=== PATIENT | female | born 1955 | race Caucasian/White ===

== ENCOUNTER 2024-12-11 15:22 | Inpatient (IN) | payer MEDICARE, BC, SELFPAY ==
[2024-12-11] VITALS (10 sets, daily range): BP systolic 139–169; BP diastolic 91–108; PULSE 70–876; RESP 16–98; TEMP 36.8–37.1; O2SAT 97–100; BMI 19.5
--- NOTE | 2024-12-11 15:54 | XR_ITS ---
Examination: CTA carotids with intravenous contrast CTA brain, head with intravenous contrast. 2-D sagittal, coronal reconstructions. 3-D reconstructions. Exam date and time: December 11, 2024 1610 hours INDICATIONS: Stroke alert, onset focal neurologic deficit today CTDI: vol (mGy) 10.2 DLP: (mGycm) 385 Technique: Multiple CTA axial brain, head carotid images post intravenous contrast injection 75 cc, Isovue-370. 2-D sagittal, coronal reconstructions. 3-D reconstructions, 3-D post processing including vascular maximum intensity projection images. Low dose protocols were performed. One or more of the following dose reduction techniques were used; automated exposure control, adjustment of the mA and/or KV according to patient size, use of iterative reconstruction technique. Findings: Moderate calcification the right carotid bifurcation, 30-50% stenosis right carotid bifurcation and origin right internal carotid artery No significant stenosis left common carotid artery carotid bifurcation or internal carotid artery Very small right vertebral artery, grossly intact No cerebral large vessel arterial occlusions or thrombus IMPRESSION: 30-50% stenosis right carotid bifurcation origin right internal carotid artery No cerebral large vessel arterial occlusions
--- NOTE | 2024-12-11 15:54 | XR_ITS ---
Examination: CT brain head without contrast. 2-D sagittal coronal reconstructions Date and time of exam:December 11, 2024 1558 hours INDICATIONS: Stroke alert, onset focal neurologic deficit confusion altered mental status today CTDI: vol (mGy):44.3 DLP: (mGycm):913 Technique: Multiple CT axial sections of the brain have been obtained, 5 mm slice thickness. Contrast has not been administered. 2-D sagittal, coronal reconstructions have been obtained Low dose protocols were performed. One or more of the following dose reduction techniques were used; automated exposure control, adjustment of the mA and/or KV according to patient size, use of iterative reconstruction technique. Findings: No significant ventricular enlargement. Intra-axial or extra-axial hemorrhage density is not seen. No mass effect or midline shift Basal cisterns are not remarkable. Fourth ventricle is midline. Cranial vault intact. Impression: Negative for acute hemorrhage, mass effect or midline shift
--- NOTE | 2024-12-11 15:54 | EKG_ITS ---
[facility] Test Date: 2024-12-11 Pat Name: IGLESIA PRINCE Department: Room: - Gender: Female Radiologist Physician: : 1955 Requested By: Joseph Espitia Order Number: [id number] Reading MD: Joseph Espitia Measurements Intervals [place] Rate: 100 P: 76 [place]: 108 QRS: 60 QRSD: 86 T: 58 QT: 393 QTc: 509 Interpretive Statements SINUS TACHYCARDIA WITH SHORT [place] INTERVAL WITH OCCASIONAL SUPRAVENTRICULAR PREMATURE COMPLEXES ST DEVIATION AND MODERATE T-WAVE ABNORMALITY, CONSIDER INFERIOR ISCHEMIA [-0.1+ mV T WAVE IN II/aVF] No previous ECG available for comparison /store/S0/[id number].pdf
--- NOTE | 2024-12-11 16:26 | PD.EDAMS ---
Altered Mental Status RME/HPI General Chief Complaint: Altered Mental Status Stated Complaint: ANXIETY Time Seen by Provider: 12/11/24 15:40 Arrival date/time: 12/11/24 15:22 RME / HPI RME / HPI narrative: 69 year old female with history of hypertension presents to the ED BIBA from home for evaluation of altered mental status today. Per medics report, had called 911 stating the patient appeared confused and asking repetitive questions. State on scene patient was awake, alert, answering all questions appropriately, GCS of 15, and G-FAST was negative. Prehospital BS 110. While in the ED patient reports feeling confused otherwise no other complaints or symptoms reported. Denies fevers, chills, chest pain, cough, shortness of breath, abdominal pain, n/v/d, or urinary symptoms. Related Data Allergies Allergy/AdvReac Type Severity Reaction Status Date / Time Sulfa (Sulfonamide Allergy Verified 12/11/24 17:51 Antibiotics) Review of Systems Review of Systems Narrative Review of Systems: GEN: No fever, no chills, no weight loss EYES: No discharge, no visual changes, no pain HEENT: No ear pain, no congestion, no sore throat PULM: No shortness of breath, no cough, no congestion CV: No chest pain, no dyspnea on exertion, no palpitations GI: No nausea, no vomiting, no diarrhea, no pain, no constipation : No frequency, no urgency and no dysuria MUSC/SKEL No joint pain, no back pain SKIN: No rash PSYCH: No hallucinations, no depression HEME/LYMPH: No easy bleeding or bruising tendencies NEURO: +feels confused. No weakness, no headache Past Medical History Social History SMOKING STATUS: Heavy (> 1 pack/day) ED Exam Narrative Physical exam: GENERAL APPEARANCE: Well hydrated, well nourished, in no acute distress. Appears confused. VITALS: All vitals were reviewed and the pulse ox is 97% on room air which is normal according to my interpretation. HEENT: Normocephalic, atramatic, EOMI, EACs are patent. There is no bulge or retraction. Throat without erythema or exudate. Moist oromucosa. No jaundice NECK: Supple, no JVD or bruits. CARDIOVASCULAR: Heart regular without S3-S4 or murmur. No rubs or gallops. LUNGS/CHEST: Clear to auscultation bilaterally. No rales, rhonchi, or wheezing. Normal inspection. ABDOMEN: Soft, nontender, with normal bowel sounds. No pulsatile masses. No rebound, rigidity, or guarding. No incarcerated hernia. Normal inspection and palpation. EXTREMITIES: Normal inspection and palpation. No edema, clubbing, or cyanosis. Intact CSM SKIN: Warm and dry without rashes. Normal inspection. MUSCULOSKELETAL: Normal inspection. No gross deformity, full ROM all extremities NEURO: Alert and oriented x3 although mildly confused. Cranial nerves II through XII grossly intact. There are no other motor or sensory deficits noted. PSYCHIATRIC: Normal mood and affect. No psychosis. Course Quality Measures Suspected type of Stroke: Non Acute Last know well: unknown Tenecteplase given: Reason(s) TPA not given: Outside the time window not given stroke Orders Category Date Time Status Bedside Blood Glucose NOW Care 12/11/24 15:54 Active Research Center Director NOW Care 12/11/24 15:54 Active Continuous Pulse Oximetry NOW Care 12/11/24 15:54 Active EKG (ED ONLY) *Do not use* NOW Care 12/11/24 15:54 Completed In and Out Catheter NEEDED Care 12/11/24 15:54 Active Insert IV NOW Care 12/11/24 15:54 Active NIH Stroke Scale now Care 12/11/24 15:54 Active NPO NOW Care 12/11/24 15:54 Active Neuro Check Q1HR Care 12/11/24 15:54 Active Nurse Swallow Screen x1 Care 12/11/24 15:54 Active Consult to Neurology / Tele-Neurology Routine Cons 12/11/24 15:[address] angio stroke protocol Stat Exams 12/11/24 15:[address] stroke protocol Stat Exams 12/11/24 15:54 Completed EKG (ED Only) Stat Exams 12/11/24 15:54 Draft Alcohol, Blood Medical Stat Lab 12/11/24 16:13 Completed CBC Stat Lab 12/11/24 16:13 Completed Comprehensive Metabolic Panel Stat Lab 12/11/24 16:13 Completed Drug Screen,Urine Stat Lab 12/11/24 16:36 Completed Magnesium Stat Lab 12/11/24 16:13 Completed Partial Thromboplastin Time Stat Lab 12/11/24 16:13 Completed Prothrombin Time with INR Stat Lab 12/11/24 16:13 Completed Troponin I Stat Lab 12/11/24 16:13 Completed Urinalysis Stat Lab 12/11/24 16:36 Completed Urine Culture Stat Lab 12/11/24 16:36 Received Ondansetron Inj [Zofran Inj] Med 12/11/24 15:53 Active 4 mg IV Q4HR PRN POTASSIUM CHL 10 mEq IVPB [Kcl Ivpb] Med 12/11/24 17:38 Active 10 meq in 100 ml IV X1 POTASSIUM CHL 10 mEq IVPB [Kcl Ivpb] Med 12/11/24 17:40 Active 10 meq in 100 ml IV X1 POTASSIUM CHL 10 mEq IVPB [Kcl Ivpb] Med 12/11/24 17:41 Active 10 meq in 100 ml IV X1 POTASSIUM CHL 10 mEq IVPB [Kcl Ivpb] Med 12/11/24 17:41 Active 10 meq in 100 ml IV X1 Potassium Chloride [K-Dur] Med 12/11/24 17:34 Discontinued 40 meq PO X1 ONE Sodium Chloride 0.9% 1000 ml [Ns] 1,000 ml Med 12/11/24 16:00 Active IV Q10H Oxygen Delivery NOW RT 12/11/24 15:54 Active Vital Signs Vital signs: Vital Signs Temperature 98.3 F 12/11/24 16:33 Pulse Rate 105 H 12/11/24 16:33 Respiratory Rate 19 12/11/24 16:33 Blood Pressure 161/103 H 12/11/24 16:33 Pulse Oximetry (%) 99 12/11/24 16:33 Oxygen Delivery Method Room Air 12/11/24 16:33 Altered Mental Status MDM Narrative MDM Narrative:: I, Anat Mercer, am scribing for and in the presence of Dr. Espitia. CBC is negative. Sodium is 128. Chlorides of 88. Potassium of 2.0. Which is very low. Alcohol negative. Toxicology negative. Magnesium negative. Troponin negative. PT is negative. UA is negative. CT head and CT angiogram of head and neck were done and results are posted below. Twelve-lead EKG at 1648 interpreted by me: Sinus rhythm. Heart rate 100. Normal axis. No ST elevation. Minimal ST segment depression in leads V4, V5 and V6. No STEMI. No PVC. Regular rate and rhythm. In the emergency department we are giving the patient's potassium by order is for 40 hiram potassium by mouth now followed by 10 mill equivalent of potassium IV per hour times 4K rider bags. 4:33 PM I spoke to discussed with Dr. Bernard, teleneurologist on the phone. She has examined the patient. She said that unlikely to be a stroke. She said most likely metabolic dysfunction. She does not recommend any aspirin or Plavix. But she does recommend a follow-up MRI of the brain. 6 PM, I spoke to and discussed with Dr. cuellar, hospitalist on-call. He agreed to assess the patient for admission. Critical care time is approximately 35 minutes excluding any procedure. The high probability of sudden, clinically significant deterioration in the patient?s condition required the highest level of my preparedness to intervene urgently. The services I provided to this patient were to treat and/or prevent clinically significant deterioration. Services included the following: chart data review, reviewing nursing notes and/or old charts, documentation time, staffing consultant collaboration regarding findings and treatment options, medication orders and management, direct patient care, vital sign assessments and ordering, interpreting and reviewing diagnostic studies and lab tests. Aggregate critical care time includes only time during which I was engaged in work directly related to the patient?s care, as described above, whether at bedside or elsewhere in the Emergency Department. It did not include time spent performing other reported procedures or the services of residents, students, nurses or physician assistants. Patient data External records reviewed:: [facility] previous records (Per EMR, there are no previous visits for review ) and EMS form Clinical information provided by:: patient and EMS Social determinants that could affect healthcare access:: none Patient has the following chronic illnesses:: HTN How is presenting disease/condition affected by chronic disease/condition?: exacerbated by Evaluation data The following diagnostics were reviewed and interpreted by me:: lab results, radiology exam(s) and EKG tracing(s) Lab and/or radiology exams considered but not ordered:: None Interpretation Summary: Ordering Physician: Joseph Espitia MD Date of Service: 12/11/24 Procedure(s): CT stroke protocol Accession Number(s): [id number] cc: Edi Mathur MD; Joseph Espitia MD~ Examination: CT brain head without contrast. 2-D sagittal coronal reconstructions Date and time of exam:December 11, 2024 1558 hours INDICATIONS: Stroke alert, onset focal neurologic deficit confusion altered mental status today CTDI: vol (mGy):44.3 DLP: (mGycm):913 Technique: Multiple CT axial sections of the brain have been obtained, 5 mm slice thickness. Contrast has not been administered. 2-D sagittal, coronal reconstructions have been obtained Low dose protocols were performed. One or more of the following dose reduction techniques were used; automated exposure control, adjustment of the mA and/or KV according to patient size, use of iterative reconstruction technique. Findings: No significant ventricular enlargement. Intra-axial or extra-axial hemorrhage density is not seen. No mass effect or midline shift Basal cisterns are not remarkable. Fourth ventricle is midline. Cranial vault intact. Impression: Negative for acute hemorrhage, mass effect or midline shift Dictated By: Edi Mathur MD Signed By: <Electronically signed by Edi Mathur MD in OV> 12/11/24 1608 Ordering Physician: Joseph Espitia MD Date of Service: 12/11/24 Procedure(s): CT angio stroke protocol Accession Number(s): [id number] cc: Edi Mathur MD; Joseph Espitia MD~ Examination: CTA carotids with intravenous contrast CTA brain, head with intravenous contrast. 2-D sagittal, coronal reconstructions. 3-D reconstructions. Exam date and time: December 11, 2024 1610 hours INDICATIONS: Stroke alert, onset focal neurologic deficit today CTDI: vol (mGy) 10.2 DLP: (mGycm) 385 Technique: Multiple CTA axial brain, head carotid images post intravenous contrast injection 75 cc, Isovue-370. 2-D sagittal, coronal reconstructions. 3-D reconstructions, 3-D post processing including vascular maximum intensity projection images. Low dose protocols were performed. One or more of the following dose reduction techniques were used; automated exposure control, adjustment of the mA and/or KV according to patient size, use of iterative reconstruction technique. Findings: Moderate calcification the right carotid bifurcation, 30-50% stenosis right carotid bifurcation and origin right internal carotid artery No significant stenosis left common carotid artery carotid bifurcation or internal carotid artery Very small right vertebral artery, grossly intact No cerebral large vessel arterial occlusions or thrombus IMPRESSION: 30-50% stenosis right carotid bifurcation origin right internal carotid artery No cerebral large vessel arterial occlusions Dictated By: Edi Mathur MD Signed By: <Electronically signed by Edi Mathur MD in OV> 12/11/24 1638 Medications / Prescriptions Medications or Prescriptions considered but not ordered:: None Medication administrations:: Medication Administration History Sodium Chloride (Ns) 1,000 mls @ 100 mls/hr IV Q10H JUANY Stop: 12/12/24 11:59 Last Admin: 12/11/24 17:28 Dose: 100 mls/hr Documented By: Potassium Chloride (Kcl Ivpb) 10 meq in 100 mls @ 100 mls/hr IV X1 ONE Stop: 12/11/24 18:37 Last Admin: 12/11/24 17:52 Dose: 100 mls/hr Documented By: Potassium Chloride (Kcl Ivpb) 10 meq in 100 mls @ 100 mls/hr IV X1 ONE Stop: 12/11/24 18:39 Potassium Chloride (Kcl Ivpb) 10 meq in 100 mls @ 100 mls/hr IV X1 ONE Stop: 12/11/24 18:40 Potassium Chloride (Kcl Ivpb) 10 meq in 100 mls @ 100 mls/hr IV X1 ONE Stop: 12/11/24 18:40 Ondansetron HCl (Ondansetron Inj 2 Mg/Ml Inj 2 Ml) 4 mg IV Q4HR PRN PRN Reason: NAUSEA OR VOMITING Stop: 01/10/25 15:52 Discontinued Medications Potassium Chloride (Potassium Chloride 20 Meq Tabcr) 40 meq PO X1 ONE Stop: 12/11/24 17:35 Last Admin: 12/11/24 17:52 Dose: 40 meq Documented By: See above Consultations Consultation(s) initiated? (list below): Yes Consultation #1 (Physician, Specialty, Details): I spoke with teleneurologist Dr. Nicholson. States patients last known well is unknown and out of the 4.5 window. Time: 16:47 Consultation #2 (Physician, Specialty, Details): I spoke with hospitalist Dr. Cuellar. Discussed patients PMHx, HPI, ED course, exam findings, labs, and radiology results as noted above. Diagnosis Most likely diagnosis given after review of the tests above:: AMS Hypokalemia Hyponatremia Hypochloremia Admission Indicated Admission indicated?: indicated Admission Request Was there a request for admission?: Yes Admission Attestation Admission request attestation: Discussed case with [] from Hospitalist service regarding admission. Discussed patients ED course, exam findings, labs, and radiology results. The Hospitalist [agrees,declines] to accept the patient for admission. Disposition Plan Disposition Plan: Admit Discharge Plan Plan Patient Disposition: Admit Acute Care w/in Hospital Disposition Comment: Stable for admit Problem List Clinical Impression: Altered mental status, Hyponatremia, Hypokalemia, Hypochloremia Patient/Caregiver Discharge Instructions Print Language: Citizen Of [place] Stand Alone Forms: Nikki Award Info., Patient Portal Info Letter
[2024-12-11 16:28] LABS: Basophils % (Auto) 0 % (0-2.5); Eosinophils % (Auto) 0 % (0-10); Hematocrit 37.4 % (36.0-46.0); Hemoglobin 14.1 g/dL (12.0-16.0); Immature Granulocytes % (Auto) 1 % (0-0); Immature Granulocytes Auto 0.06 Thou/mm3 (0.00-0.00); Lymphocytes # (Auto) 1.6 Thou/mm3 (1.0-4.8); Lymphocytes % (Auto) 16 % (10-50); Mean Corpuscular HGB Conc 37.7 g/dl (31.0-37.0); Mean Corpuscular Hemoglobin 32.6 pg (25.0-35.0); Mean Corpuscular Volume 87 fL (80-100); Monocytes # (Auto) 1.2 Thou/mm3 (0.0-0.8); Monocytes % (Auto) 11 % (0-12); Neutrophils # (Auto) 7.7 Thou/mm3 (1.8-7.7); Neutrophils % (Auto) 73 % (37-80); Nucleated Red Blood Cell % 0 /100 WBC (0); Platelet Count 374 Thou/mm3 (140-440); Red Blood Count 4.32 Miln/mm3 (4.00-5.20); White Blood Count 10.6 Thou/mm3 (3.6-11.0)
--- NOTE | 2024-12-11 16:41 | ESCONSULT_ITS ---
Tele Neuro Consultation Consultation Date 12/11/24 Consultation Narrative [facility] Tele[facility]urology Consult Services Patient Name:???Lashae Gonzalez Date of :???1955 Identification Number:??? Date of Service:???12/11/2024 15:56:36 Diagnosis:?G93.49 - Encephalopathy Multifactorial Impression: ?1. The patient appears to be more confused and is less ambulatory than she normally is. It sounds like she has rather significant cognitive complications as a result of having a prior Covid infection as she was previously a physician computer lab assistant. Her family manages her finances, etc. her medications, they even help her move from place to place with assistance to go sit in different places in the house. It sounds like she can ambulate independently but does have balance issues. She is not aphasic. On exam she appears confused. She did not have any focal weakness numbness or tingling. ? ?Recommend toxic metabolic workup. It is possible component of Xanax withdrawal is contributing to her symptoms, however, would wait for basic toxic metabolic workup such as electrolytes to result. Can always give her half dose of her benzodiazepines. Depending on how she takes it at home in order to avoid a component of withdrawal. Recommend routine MRI brain. Recommend B12, TSH, ammonia. Recommend drug screen. ?consider routine EEG if no explanation for her AMS found on basic workup. ? Telemetry Floor ? Neuro Checks ? Bedside Swallow Eval ? DVT Prophylaxis ? IV Fluids, Normal Saline ? Euglycemia and Avoid Hyperthermia (PRN Acetaminophen) Sign Out: ? Discussed with Emergency Department Provider Advanced Imaging: CTA Head and Neck Completed. LVO:No Patient in not a candidate for ISREAL Metrics: Last Known Well: Unknown Dispatch Time: 12/11/2024 15:56:36 Arrival Time: 12/11/2024 15:22:00 Initial Response Time: 12/11/2024 16:00:10Symptoms: AMS. Initial patient interaction: 12/11/2024 16:02:59 NIHSS Assessment Completed: 12/11/2024 16:12:00Patient is not a candidate for Thrombolytic. Thrombolytic Medical Decision: 12/11/2024 16:12:00Patient was not deemed candidate for Thrombolytic because of following reasons: LKW outside 4.5 hr window. . I personally Reviewed the CT Head and it Showed no acute changes Primary Provider Notified of Diagnostic Impression and Management Plan on: 12/11/2024 16:47:26 History of Present Illness:Patient is a 69 year old Female. Patient was brought by EMS for symptoms of AMS. The patient is a 69-year-old woman with a history of hypertension and has long covid She's had what sounds like some pretty significant cognitive issues ever since being infected. Her family provides a history that she has improved quite a bit, but that they still sets her pills out in a pill dispenser and she takes them. She does not manage her own finances, she requires assistance to walk from place to place. He apparently brought her a walker and a cane, but she really doesn't use them. It sounds like she has some behavioral issues as well. For the past 2 days, today and yesterday they noticed that she did not take her antihypertensives and she did not take her Xanax that she does take on a daily basis. Today she really hadn't gotten out of bed all day and is more confused than usual. She does not take any blood thinners. Past Medical History: ?Hypertension Other PMH:? cognitive impairment post covid Medications: No Anticoagulant use? No Antiplatelet use Reviewed EMR for current medications Allergies:? Reviewed Social History: Drug Use: No Family History: There is no family history of premature cerebrovascular disease pertinent to this consultation ROS : 14 Points Review of Systems was performed and was negative except mentioned in HPI. Past Surgical History: There Is No Surgical History Contributory To Today?s Visit Examination: BP(130/90),?Pulse(75), 1A: Level of Consciousness - Alert; keenly responsive?+ 0 1B: Ask Month and Age - Both Questions Right?+ 0 1C: Blink Eyes & Squeeze Hands - Performs Both Tasks?+ 0 2: Test Horizontal Extraocular Movements - Normal?+ 0 3: Test Visual Jaramillo - No Visual Loss?+ 0 4: Test Facial Palsy (Use Grimace if Obtunded) - Normal symmetry?+ 0 5A: Test Left Arm Motor Drift - No Drift for 10 Seconds?+ 0 5B: Test Right Arm Motor Drift - No Drift for 10 Seconds?+ 0 6A: Test Left Leg Motor Drift - No Drift for 5 Seconds?+ 0 6B: Test Right Leg Motor Drift - No Drift for 5 Seconds?+ 0 7: Test Limb Ataxia (FNF/Heel-Stephenson) - No Ataxia?+ 0 8: Test Sensation - Normal; No sensory loss?+ 0 9: Test Language/Aphasia - Normal; No aphasia?+ 0 10: Test Dysarthria - Normal?+ 0 11: Test Extinction/Inattention - No abnormality?+ 0 NIHSS Score:?0 Pre-Morbid Modified Wagram Scale:4 Points = Moderately severe disability; unable to walk and attend to bodily needs without assistance Spoke with :?ED MD This consult was conducted in real time using interactive audio and video technology. Patient was informed of the technology being used for this visit and agreed to proceed. Patient located in hospital and provider located at home/office setting. Patient is being evaluated for possible acute neurologic impairment and high probability of imminent or life-threatening deterioration. I spent total of 45 minutes providing care to this patient, including time for face to face visit via telemedicine, review of medical records, imaging studies and discussion of findings with providers, the patient and/or family. Dr Aisha Nicholson [facility] For Inpatient follow-up with [facility] physician please call [facility] at . As we are not an outpatient service for any post hospital discharge needs please contact the hospital for assistance. If you have any questions for the [facility] physicians or need to reconsult for clinical or diagnostic changes please contact us via [facility] at .
[2024-12-11 16:44] LABS: Partial Thromboplastin Time 23.6 Seconds (22.0-36.0); Prothrombin Time 11.2 Seconds (9.0-12.2)
[2024-12-11 16:59] LABS: Collection Type, Urine Clean Catch
[2024-12-11 17:00] LABS: Alanine Aminotransferase 93 U/L (10-49); Albumin, Serum 3.3 gm/dL (3.4-4.8); Albumin/Globulin Ratio 1.3 (1.2-2.2); Alcohol, Blood Medical < 3.0 mg/dL (0-10.0); Alkaline Phosphatase 152 U/L (46-116); Anion Gap 11 (7-16); Aspartate Amino Transferase 122 U/L (0-34); BUN/Creatinine Ratio 13 Ratio (12-20); Bilirubin,Total 1.1 mg/dL (0.3-1.2); Blood Urea Nitrogen 8 mg/dL (9-23); Calcium 8.9 mg/dL (8.3-10.6); Calcium (Corrected) 9.5 mg/dL (8.5-10.1); Carbon Dioxide 29.4 mMol/L (20.0-31.0); Chloride 88 mMol/L (98-107); Creatinine (Component) 0.6 mg/dL (0.6-1.3); Estimated Creatinine Clearance 71.7 mL/min (>60); Globulin 2.5 gm/dL (2.3-3.5); Glucose 101 mg/dL (74-106); Magnesium 1.8 mg/dL (1.6-2.6); Osmolality,Calculated 255 (275-295); Sodium 128 mMol/L (136-145); Total Protein 5.8 gm/dL (5.7-8.2); Troponin I 0.039 ng/mL (0.0-0.045); eGFR > 60 See Note
[2024-12-11 17:05] LABS: Bilirubin,Urine Negative (Negative); Blood,Urine Negative (Negative); Clarity,Urine Clear (Clear/Hazy); Color,Urine Lt-Yellow (Lt Yel-Yel); Glucose, Urine Negative (Negative); Ketones,Urine 1+ (Negative); Leukocyte Esterase,Urine Positive (Negative); Nitrite,Urine Negative (Negative); Protein,Urine Negative (Neg - Trace); RBC,Urine 1 /hpf (0-3); Specific Gravity,Urine 1.017 (1.001-1.035); Squamous Epithelial Cell,Urine 1 /hpf (0-5); Urobilinogen,Urine Negative mg/dL (0.0-1.0); WBC,Urine 7 /hpf (0-5)
[2024-12-11 17:12] LABS: Amphetamine/Methamp Scrn,U Negative (Negative); Barbiturate Screen,Urine Negative (Negative); Benzodiazepines Screen,Urine Negative (Negative); Benzoylecgonine Screen, Ur Negative (Negative); Fentanyl Screen,Urine Negative (Negative); Opiate Screen,Urine Negative (Negative); THC Screen,Urine Negative (Negative)
[2024-12-11] MEDS: SODIUM CHLORIDE 0.9% 1000 ML 1,000 ML 100 ML IV (17:28)
[2024-12-11] MEDS: POTASSIUM CHL 10 mEq IVPB 10 MEQ/100 ML BAG 100 MEQ IV ×4 (17:52→21:47)
[2024-12-11] MEDS: POTASSIUM CHLORIDE 20 mEq TABCR 40 MEQ PO ×2 (17:52→19:03)
--- NOTE | 2024-12-11 18:58 | PD.HHHP ---
Documentation for date of: 12/11/24 HPI - Hospitalist History of Present Illness History of present illness: Patient is a 69 years old female with past medical history of essential hypertension was brought to the ED by her family due to concern for altered mental status. At bedside, patient is confused and is unable to answer questions appropriately. HPI completed with help of her brother on phone. As per the brother, patient has not been completely herself for last couple of years and has been having slow cognitive decline after COVID infection. But for the last couple of of months her decline has been faster. She is able to complete her ADLs at baseline but needs help with Cooking. The son also mentioned that for last few day she has not been able to eat/drink well. Patient drinks 6-8 beers everyday, which the family has been trying to taper for last couple months, her last drink was 3 days ago. Patient also takes xanax daily, and the son believes she has been dependant on it. Patient has been noncompliant with her medication and doctor visits. Her last visit was 6 month ago, when she was told she has low potassium and prescibed K tablets for 4-5 days, but she never had a follow up vist/labs. The son denied fever, chills, Pain, SOB, cough, Nausea, vomiting or diarrhea. In the ED stroke alert was called initially, Head CT was done, negative for acute hemorrhage, mass effect or midline shioft. CTA head/neck shows 30-50% stenosis right carotid bifurcation origin right internal carotid artery No cerebral large vessel arterial occlusions. Tele neurology was consulted, who recommended brain MRI and workup for toxic metabolic causes of encephalopathy. She was found to be hypertensive 161/103 and tachycardic 105. Saturating well on room air. Lab results revealed Na of 128, K 2.0 and chloride 98. Also noted to have mild elevation in liver enzymes. We will admit the patient for management of acute encephalopathy in setting of severe electrolyte abnormalities and decreased oral intake. Past medical history: Hypertension, Benzo abuse Past surgical history: None Past social history: Smokes cigarette, currently 1 pack/week, used to smoke heavily before; Drinks alcohol regularly 6-8 beers/day, does not use illicit drugs, lives with 2 sons Review of Systems Review of Systems ROS Unobtainable: unobtainable due to mental status Meds Home Medications and Allergies Allergies Allergy/AdvReac Type Severity Reaction Status Date / Time Sulfa (Sulfonamide Allergy Verified 12/11/24 17:51 Antibiotics) Exam Vital Signs Temp Pulse Resp BP Pulse Ox O2 Del Method 98.4 F 104 H 20 145/96 H 100 Room Air 12/11/24 18:30 12/11/24 18:30 12/11/24 18:30 12/11/24 18:30 12/11/24 18:30 12/11/24 18:30 Narrative General: Awake and alert but oriented x2. Lying comfortably on the bed. Unable to answer questions appropriately but able to follow commands HEENT: Normocephalic, atraumatic, mucous membranes dry. Heart: Regular rate and rhythm, no murmur Lungs: Clear to auscultation with no wheezing or crackles. Abdomen: Soft, nondistended, nontender, positive bowel sounds. ?No guarding or rebound tenderness. Neurologic: Alert but only oriented x2, no gross neurological deficit, and patient able to move all 4 extremities. Extremities: No edema. Skin: No rash Psych: Pleasantly confused Results - Hospitalist Labs Diagrams: 12/11/24 16:13 12/11/24 16:13 Labs: Short CBC 12/11/24 Range/Units 16:13 WBC 10.6 (3.6-11.0) Thou/mm3 Hgb 14.1 (12.0-16.0) g/dL Hct 37.4 (36.0-46.0) % Plt Count 374 (140-440) Thou/mm3 [facility] 12/11/24 16:13 Sodium 128 L Potassium 2.0 L* Chloride 88 L Carbon Dioxide 29.4 BUN 8 L Creatinine 0.6 Glucose 101 Calcium 8.9 Cardiac Enzymes 12/11/24 Range/Units 16:13 Troponin I 0.039 (0.0-0.045) ng/mL Liver Function 12/11/24 Range/Units 16:13 Total Bilirubin 1.1 (0.3-1.2) mg/dL AST 122 H (0-34) U/L ALT 93 H (10-49) U/L Alkaline Phosphatase 152 H (46-116) U/L Albumin 3.3 L (3.4-4.8) gm/dL Urine 12/11/24 Range/Units 16:36 Urine Color Lt-Yellow (Lt Yel-Yel) Urine Clarity Clear (Clear/Hazy) Urine pH 7.0 (5.0-7.0) Ur Specific Guin 1.017 (1.001-1.035) Urine Protein Negative (Neg - Trace) Urine Glucose (UA) Negative (Negative) Assessment & Plan -Hospitalist Additional Plan Additional Plan: 69 years old female with Past medical history of hypertension being admitted for evaluation and management of Acute encephalopathy in setting of electrolyte imbalance and decreased oral intake. #Acute encephalopathy #Progressive cognitive decline #CVA rule out #Possible benzodiazepine withdrawl Likely toxic metabolic in setting of progressive cognitive decline Patient has low sodium, potassium and chloride Patient has been having low oral intake recently, also has history of regular alcohol intake Stroke alert was called in the ED Head CT was negative for acute hemorrhage, mass effect or midline shift. CTA head/neck shows 30-50% stenosis right carotid bifurcation origin right internal carotid artery No cerebral large vessel arterial occlusions. Tele neurology was consulted, who recommended brain MRI and workup for toxic metabolic causes of encephalopathy. Ordered brain MRI, ammonia, TSH, B12 Drug screen and alcohol level negative We will continue frequent neurochecks, seizure precautions, obtain swallow screen, physical therapy and speech therapy We will also obtain in house neurology consult #Electrolyte imbalances #Hyponatremia #Hypokalemia #Hypochloremia Likely secondary to decreased oral intake Noted to have NA 128, K 2.0 and Cl 98 Patient received 40 mEq PO and was started on 40 Iv of Kcl in the ED We will add 40 more orally for tonight Started on 40 mEq BID PO from tomorrow morning We will continue with NS at 100cc/hr started in the ED Discussed with nephrology, appreciate recommendations We will obtain urinary electrolytes, renin and aldosterone level along with phosphorus level We will monitor the level frequently and adjust the supplementation #History of alcohol abuse #History of smoking #Alcohol withdrawal The son stated he has been trying to taper her alcohol intake and smoking at home, last drink 3 days back Negative urine toxicology including blood alcohol level Started patient on CIWA protocol Started on thiamine, folate and multivitamin We will monitor symptoms of withdrawal closely #Elevated liver enzymes Likely related to alcohol abuse Has AST/ ALT/ALP/ T Sunny of 122, 93, 152, 1.1 We will obtain liver US #Hypertension Blood pressure of 161/103 on arrival Patient takes Nifedipine at home, dose unclear Started on 30mg TID, will adjust antihypertensive regimen based on response #Sinus Tachycardia Likely related to dehydration, withdrawls We will monitor closely Diet: Regular diet DVT prophylaxis: Heparin SC Code: Full code Padmini Reyes MD Quality Measures Quality Measures stroke Suspected type of Stroke: Non Acute Tenecteplase given: Reason(s) Tenecteplase not given: Outside the time window not given Rehab services: PT evaluation ordered and Speech Language Pathology eval ordered VTE Prophylaxis: pharmaceutical Antithrombotic by day 2:: not indicated (describe) (Altered mentation more likely to be metabolic) Statin ordered: not ordered Anticoagulation ordered for A-fib or flutter (current or hx): not indicated Advance care planning discussed with:: child
[2024-12-11 19:31] LABS: Vitamin B12 1693 pg/mL (211-911)
[2024-12-11 20:21] LABS: Phosphorous 1.5 mg/dL (2.4-5.1); Thyroid Stimulating Hormone 1.97 uIU/mL (0.55-4.78)
[2024-12-11] MEDS: THIAMINE INJ 100 MG/ML VIAL 2 ML IM (20:31)
[2024-12-11 20:41] LABS: Ammonia < 10 uMol/L (11-32)
[2024-12-11] MEDS: FOLIC ACID 1 MG TABLET PO (20:46)
[2024-12-11] MEDS: THIAMINE 100 MG TABLET PO (20:46)
[2024-12-11] MEDS: MULTIVITAMIN 15 ML UDC PO (21:01)
[2024-12-11] MEDS: NIFEdipine XL 30 MG TABCR PO (21:01)
[2024-12-11] MEDS: POT PHOS 15 mMol in NS 250 ML 15 MMOL/250 ML BAG 62.5 MMOL IV (21:23)
[2024-12-11] MEDS: HEPARIN SOD INJ 5000 UNIT/ML VIAL SC (22:03)
[2024-12-11 23:43] LABS: Albumin, Serum 3.2 gm/dL (3.4-4.8); Anion Gap 5 (7-16); BUN/Creatinine Ratio 12 Ratio (12-20); Blood Urea Nitrogen 7 mg/dL (9-23); Calcium 8.6 mg/dL (8.3-10.6); Calcium (Corrected) 9.2 mg/dL (8.5-10.1); Carbon Dioxide 29.9 mMol/L (20.0-31.0); Chloride 99 mMol/L (98-107); Creatinine (Component) 0.6 mg/dL (0.6-1.3); Estimated Creatinine Clearance 71.7 mL/min (>60); Glucose 78 mg/dL (74-106); Osmolality,Calculated 265 (275-295); Phosphorous 2.3 mg/dL (2.4-5.1); Potassium 3.8 mMol/L (3.4-5.1); Sodium 134 mMol/L (136-145); eGFR > 60 See Note
[2024-12-12] VITALS (11 sets, daily range): BP systolic 104–175; BP diastolic 74–105; PULSE 83–98; RESP 18–21; TEMP 36.6–37.2; O2SAT 97–99
--- NOTE | 2024-12-12 | XR_ITS ---
Examination: MRI of brain without intravenous contrast. MRI brain with intravenous contrast. Date and time of exam:December 12, 2024 1031 hrs. Indications: Increasing confusion altered mental status beginning 3 months ago Technique: Multiple axial and sagittal images of the brain to been obtained. Siemens high-resolution 1.52 [place] short bore scanner utilized. Sagittal sections, T1 weighted images, TR 500, TE 14, are performed. Axial sections proton-density and T2-weighted images have been obtained. Inversion recovery axial images, TR 9260, TE 111, TR 2500. Diffusion weighted images, axial sections, TR 4800, TE 128, B value 1000. Axial sections, ADC map, TR 4800, TE 128. Axial and coronal images were also obtained post 8 cc gadolinium administered intravenously. Findings:: Enlargement of the sella turcica is not present. The optic chiasm and infundibular stalk are not remarkable. There is no localized enlargement of the medulla or soha. Fourth ventricle and cerebellar tonsils appear normal in position. No subacute area of hemorrhage density is seen. Fourth ventricle is midline. Mass in the cerebellopontine angle region is not evident. 7th and 8th nerve complexes exhibit symmetry Globes are symmetrical Orbital musculature including medial lateral rectus muscles do not exhibit abnormality Increased white matter signal is prominent Effacement of the cortical sulcal markings is not identified. Mass effect upon the ventricular system is not identified. Diffusion-weighted images are not presented for interpretation Contrast images demonstrate no abnormal cerebellar or cerebral enhancement Impression: Prominent chronic microvascular white matter change Addendum will be made when the patient's diffusion-weighted images are available for interpretation
--- NOTE | 2024-12-12 00:29 | XR_ITS ---
Examination: Abdomen sonogram, Limited Date and time of exam: December 12, 2024 0041 hrs. Indications: Elevated liver function tests on laboratory examination today Technique: Real-time campbell scale transabdominal sonographic images of the upper abdomen obtained. Findings: Normal gallbladder Normal common bile duct 0.3 cm Pancreatic head 1.4 cm Liver 14.5, fatty liver No focal liver lesions Normal hepatopedal portal venous flow Patent IVC Impression: Normal gallbladder Fatty liver no focal liver lesions
--- NOTE | 2024-12-12 02:05 | PRELIM_ITS ---
Right upper quadrant abdominal ultrasound. December 12, 2024 0041 hours Clinical history: Elevated LFTs No prior study is available for comparison. Findings: The liver demonstrates diffusely increased echogenicity. No focal lesion noted. The main portal vein measures 8 mm in diameter and demonstrates normal hepatopetal flow. The hepatic veins are patent. No intrahepatic biliary ductal dilatation. No gallbladder calculus, wall thickening or pericholecystic fluid is demonstrated. The common bile duct is normal in caliber at 3 mm. The pancreas is unremarkable to the extent visualized. The inferior vena cava is normal to the extent visualized. Impression: Fatty liver. No gallbladder calculus, wall thickening, pericholecystic fluid or biliary dilatation. Other findings as described above. Report Electronically Signed By: Angel Ruiz 12/12/2024 2:04:23 AM [EST]
[2024-12-12] MEDS: SODIUM CHLORIDE 0.9% 1000 ML 1,000 ML 100 ML IV (03:00)
[2024-12-12] MEDS: POT PHOS 15 mMol in NS 250 ML 15 MMOL/250 ML BAG 62.54 MMOL IV (05:00)
[2024-12-12] MEDS: NIFEdipine XL 30 MG TABCR PO ×3 (05:06→21:13)
[2024-12-12 05:40] LABS: Basophils % (Auto) 0 % (0-2.5); Eosinophils # (Auto) 0.1 Thou/mm3 (0.0-0.5); Eosinophils % (Auto) 1 % (0-10); Hematocrit 35.6 % (36.0-46.0); Hemoglobin 12.9 g/dL (12.0-16.0); Immature Granulocytes % (Auto) 1 % (0-0); Immature Granulocytes Auto 0.04 Thou/mm3 (0.00-0.00); Lymphocytes # (Auto) 2.2 Thou/mm3 (1.0-4.8); Lymphocytes % (Auto) 26 % (10-50); Mean Corpuscular HGB Conc 36.2 g/dl (31.0-37.0); Mean Corpuscular Hemoglobin 32.2 pg (25.0-35.0); Mean Corpuscular Volume 89 fL (80-100); Monocytes % (Auto) 12 % (0-12); Neutrophils # (Auto) 5.2 Thou/mm3 (1.8-7.7); Neutrophils % (Auto) 61 % (37-80); Nucleated Red Blood Cell % 0 /100 WBC (0); Platelet Count 308 Thou/mm3 (140-440); RDW Standard Deviation 43.1 fL (36.4-46.3); Red Blood Count 4.01 Miln/mm3 (4.00-5.20); White Blood Count 8.5 Thou/mm3 (3.6-11.0)
[2024-12-12 06:09] LABS: Alanine Aminotransferase 84 U/L (10-49); Albumin, Serum 2.9 gm/dL (3.4-4.8); Albumin/Globulin Ratio 1.3 (1.2-2.2); Alkaline Phosphatase 134 U/L (46-116); Anion Gap 8 (7-16); Aspartate Amino Transferase 100 U/L (0-34); BUN/Creatinine Ratio 12 Ratio (12-20); Bilirubin,Total 0.7 mg/dL (0.3-1.2); Blood Urea Nitrogen 6 mg/dL (9-23); Calcium 8.3 mg/dL (8.3-10.6); Calcium (Corrected) 9.2 mg/dL (8.5-10.1); Carbon Dioxide 28.5 mMol/L (20.0-31.0); Cardiac Risk Estimate 3.2 RATIO (3.7-5.6); Chloride 102 mMol/L (98-107); Cholesterol 174 mg/dL (132-200); Creatinine (Component) 0.5 mg/dL (0.6-1.3); Estimated Creatinine Clearance 71.1 mL/min (>60); Globulin 2.2 gm/dL (2.3-3.5); Glucose 82 mg/dL (74-106); HDL Cholesterol 55 mg/dL (40-60); LDL Cholesterol,Calculated 97 mg/dL (0-130); Magnesium 1.6 mg/dL (1.6-2.6); Osmolality,Calculated 272 (275-295); Phosphorous 2.3 mg/dL (2.4-5.1); Potassium 3.7 mMol/L (3.4-5.1); Sodium 138 mMol/L (136-145); Total Protein 5.1 gm/dL (5.7-8.2); Triglycerides 108 mg/dL (30-150); eGFR > 60 See Note
[2024-12-12] MEDS: NAPH,KPH MBDB 1 PACKET (1.5 GM) PO (08:16)
[2024-12-12] MEDS: MULTIVITAMIN 15 ML UDC PO (08:16)
[2024-12-12] MEDS: Magnesium Sulfate 2 GM Ivpb 2 GM/50 ML BAG IV (08:17)
[2024-12-12] MEDS: FOLIC ACID 1 MG TABLET PO ×2 (08:17→21:13)
[2024-12-12] MEDS: POTASSIUM CHLORIDE 20 mEq TABCR 40 MEQ PO (08:17)
[2024-12-12] MEDS: THIAMINE 100 MG TABLET PO ×2 (08:17→21:13)
[2024-12-12] MEDS: DEXTROSE 5%-0.45% NS 500 ML 100 ML IV (08:19)
[2024-12-12] MEDS: HEPARIN SOD INJ 5000 UNIT/ML VIAL SC ×2 (08:30→21:13)
[2024-12-12 10:36] LABS: Albumin, Serum 2.9 gm/dL (3.4-4.8); Anion Gap 5 (7-16); BUN/Creatinine Ratio 12 Ratio (12-20); Blood Urea Nitrogen 6 mg/dL (9-23); Calcium 7.9 mg/dL (8.3-10.6); Calcium (Corrected) 8.8 mg/dL (8.5-10.1); Carbon Dioxide 28.4 mMol/L (20.0-31.0); Chloride 103 mMol/L (98-107); Creatinine (Component) 0.5 mg/dL (0.6-1.3); Estimated Creatinine Clearance 71.1 mL/min (>60); Glucose 150 mg/dL (74-106); Osmolality,Calculated 272 (275-295); Phosphorous 3.5 mg/dL (2.4-5.1); Potassium 3.7 mMol/L (3.4-5.1); Sodium 136 mMol/L (136-145); eGFR > 60 See Note
[2024-12-12] MEDS: DEXTROSE 5%-WATER 1,000 ML 75 ML IV ×2 (11:17→23:25)
--- NOTE | 2024-12-12 11:30 | PD.RESCONSUL ---
HPI Data of Consult Consult date: 12/12/24 Requesting Physician: Padmini Reyes MD Admitting Provider: Padmini Reyes MD Attending Provider: Padmini Reyes MD Primary Care Provider: Ward Blackmon MD Consult Narrative Reason for consult: Electrolyte imbalance History of present illness: The patient is a 69-year-old female with significant past medical history of primary hypertension presented to ED with concerns of decreased mental status by her family. During our evaluation, she reported doing well, but appeared mildly confused. Further history were obtained from chart review. She was ADLs at her baseline, and was drinking well, and as the patient has been drinking 6-8 beers every day which she has been trying to cut down, there has been concern for noncompliance with her medications. Her last hospital visit was 6-month ago, when she was told to have have low potassium and was given potassium tablet for 4 to 5 days and recommended to follow-up with her PCP with labs which she never did. She denied any fever or chills, chest pain or SOB, nausea or vomiting. She also denied any diarrhea. During our evaluation, her vitals were stable with blood pressure 119/79, temperature 98.6 saturating 99% on room air. CBC was fairly stable, sodium had improved to 138 from 128 yesterday evening. Potassium 3.7, calculated osmolality 272, phosphorus 3.5, mild transaminitis with AST/ALT/ALP 100/84/134. Vitamin B12 level 1693, UA was fairly negative, U tox was negative. Head CT was negative, CTA head and neck was significant for 30 to 50% stenosis right carotid bifurcation origin, right internal carotid artery. No cerebral large vessel arterial occlusion. US liver revealed normal gallbladder, fatty liver, no focal liver lesions. PMH: As mentioned above PSHx: None Social history: Current smoker 1 pack/week, has been cutting down; drinks alcohol regularly 6-8 beers per day, denies any use of illicit drug use Medications: To be reconciled Nephrology consultation was done for further management of electrolyte imbalance. cc:: cc: Padmini Reyes MD Review of Systems Review of Systems Systems Reviewed: All systems reviewed, normal except as documented Past Medical History Past Medical History NEUROLOGIC: Positive Dementia CARDIAC: Positive Hypercholesterolemia and Hypertension; Negative Cardiac Disorders, Atrial Fibrillation, Angina, Atherosclerotic Heart Disease, Aneurysm, Congestive Heart Failure or Congenital Heart Disease RESPIRATORY: Negative Respiratory Disorders or Chronic Obstructive Pulmonary Disease (COPD) GASTROINTESTINAL: Negative Gastrointestinal Disorders GENITOURINARY: Negative Genitourinary Disorders or Renal Disease MUSCULOSKELETAL: Positive Musculoskeletal Disorders ENT: Negative History of ENT Problems ENDOCRINE: Negative Endocrine Disorders, Diabetes Mellitus Type 1 or Diabetes Mellitus Type 2 HEMATOLOGIC: Negative Blood Disorders PSYCHO/SOCIAL: Positive Behavior Problems OTHER HISTORY: Positive Falls; Negative Autoimmune Disease, Down Syndrome, Developmental Delay or Cancer Family History FAMILY HISTORY: Positive Family Cancer; Negative Family Cardiac Disorders or Family Endocrine Disorders Surgical History SURGICAL: Positive of Shoulder Sx Social History SMOKING STATUS: Current some day smoker SECOND HAND EXPOSURE: No Exam Vital Signs Temp Pulse Resp BP Pulse Ox O2 Del Method 98.6 F 84 19 119/79 99 Room Air 12/12/24 08:00 12/12/24 08:00 12/12/24 08:00 12/12/24 08:00 12/12/24 08:00 12/12/24 08:00 Narrative Exam General: Elderly, cooperative female, no acute distress, Alert and Oriented x 2, person and place only. Skinny lady HEENT: Moist mucous membranes, oropharynx clear Neck: Supple, No masses, No JVD CVS: S1S2 Regular rate and rhythm, No murmurs, rubs or gallops Lungs: Clear to auscultation with no accessory use, no wheeze no rhonchi Abd: Soft, NT/ND, +BS, no organomegaly Ext: No edema, warm and well perfused Skin: No rash Psych: Mildly confused Results Labs 12/13/24 05:12 12/13/24 05:12 Labs: Short CBC 12/11/24 12/12/24 Range/Units 16:13 05:17 WBC 10.6 8.5 (3.6-11.0) Thou/mm3 Hgb 14.1 12.9 (12.0-16.0) g/dL Hct 37.4 35.6 L (36.0-46.0) % Plt Count 374 308 D (140-440) Thou/mm3 BMP 12/11/24 12/11/24 12/12/24 16:13 23:02 05:17 Sodium 128 L 134 L 138 Potassium 2.0 L* 3.8 D 3.7 Chloride 88 L 99 102 Carbon Dioxide 29.4 29.9 28.5 BUN 8 L 7 L 6 L Creatinine 0.6 0.6 0.5 L Glucose 101 78 82 Calcium 8.9 8.6 8.3 12/12/24 10:00 Sodium 136 Potassium 3.7 Chloride 103 Carbon Dioxide 28.4 BUN 6 L Creatinine 0.5 L Glucose 150 H D Calcium 7.9 L Cardiac Enzymes 12/11/24 Range/Units 16:13 Troponin I 0.039 (0.0-0.045) ng/mL Liver Function 12/11/24 12/11/24 12/12/24 Range/Units 16:13 23:02 05:17 Total Bilirubin 1.1 0.7 (0.3-1.2) mg/dL AST 122 H 100 H (0-34) U/L ALT 93 H 84 H (10-49) U/L Alkaline Phosphatase 152 H 134 H (46-116) U/L Albumin 3.3 L 3.2 L 2.9 L (3.4-4.8) gm/dL 12/12/24 Range/Units 10:00 Total Bilirubin (0.3-1.2) mg/dL AST (0-34) U/L ALT (10-49) U/L Alkaline Phosphatase (46-116) U/L Albumin 2.9 L (3.4-4.8) gm/dL Urine 12/11/24 Range/Units 16:36 Urine Color Lt-Yellow (Lt Yel-Yel) Urine Clarity Clear (Clear/Hazy) Urine pH 7.0 (5.0-7.0) Ur Specific [place] 1.017 (1.001-1.035) Urine Protein Negative (Neg - Trace) Urine Glucose (UA) Negative (Negative) Quality Measures Quality Measures stroke Suspected type of Stroke: Non Acute Tenecteplase given: Reason(s) Tenecteplase not given: Outside the time window not given Rehab services: PT evaluation ordered VTE Prophylaxis: pharmaceutical Antithrombotic by day 2:: not indicated (describe) (More likely thiamine deficiency, and CT head negative) Statin ordered: not ordered Anticoagulation ordered for A-fib or flutter (current or hx): not indicated Advance care planning discussed with:: other (Primary hospitalist team) Medications Home Medications and Allergies Home Medications ?Medication ?Instructions ?Recorded ?Confirmed ?Type alprazolam 0.5 mg tablet (Xanax) 0.5 mg PO TID 12/12/24 12/12/24 History nifedipine 60 mg tablet,extended 60 mg PO QDAY 12/12/24 12/12/24 History release Allergies Allergy/AdvReac Type Severity Reaction Status Date / Time Sulfa (Sulfonamide Allergy Verified 12/11/24 17:51 Antibiotics) Visit Medications Acetaminophen (Acetaminophen 325 Mg Tablet) 650 mg PO Q6H PRN PRN Reason: Fever >101.5 Stop: 01/10/25 18:36 Acetaminophen (Acetaminophen 325 Mg Tablet) 650 mg PO Q6H PRN PRN Reason: PAIN SCALE 1-3 (mild Stop: 01/10/25 18:36 Folic Acid (Folic Acid 1 Mg Tablet) 1 mg PO BID [facility] Stop: 12/16/24 20:59 Last Admin: 12/12/24 08:17 Dose: 1 mg Heparin Sodium (Porcine) (Heparin Sod Inj 5000 Unit/Ml Vial) 5,000 unit SC Q12HR [facility] Stop: 12/25/24 21:29 Last Admin: 12/12/24 08:30 Dose: 5,000 unit Sodium Chloride (Ns) 1,000 mls @ 100 mls/hr IV Q10H [facility] Last Admin: 12/12/24 03:00 Dose: 100 mls/hr Dextrose (D5w) 1,000 mls @ 75 mls/hr IV .[id number] [facility] Stop: 01/11/25 09:44 Last Admin: 12/12/24 11:17 Dose: 75 mls/hr Lorazepam (Lorazepam 0.5 Mg Tablet) 0.5 mg PO Q4HR PRN PRN Reason: CIWA Score 2-6 Stop: 12/16/24 18:58 Lorazepam (Lorazepam 0.5 Mg Tablet) 1 mg PO Q4HR PRN PRN Reason: CIWA SCORE 7-11 Stop: 12/16/24 18:58 Lorazepam (Lorazepam 0.5 Mg Tablet) 2 mg PO Q4HR PRN PRN Reason: CIWA SCORE 12-15 Stop: 12/16/24 18:58 Lorazepam (Lorazepam 2 Mg/Ml Vial) 2 mg IV Q2HR PRN PRN Reason: CIWA SCORE 20-25 Stop: 12/16/24 18:58 Lorazepam (Lorazepam 2 Mg/Ml Vial) 1 mg IV Q2HR PRN PRN Reason: CIWA SCORE 16-19 Stop: 12/16/24 18:58 Multivitamins/Minerals (Multivitamin 15 Ml Udc) 15 ml PO QDAY [facility] Stop: 01/10/25 19:14 Last Admin: 12/12/24 08:16 Dose: 15 ml Nifedipine (Nifedipine Xl 30 Mg Tabcr) 30 mg PO TID [facility] Stop: 01/10/25 20:24 Last Admin: 12/12/24 05:06 Dose: 30 mg Ondansetron HCl (Ondansetron Inj 2 Mg/Ml Inj 2 Ml) 4 mg IV Q4HR PRN PRN Reason: NAUSEA OR VOMITING Stop: 01/10/25 15:52 Potassium Chloride (Potassium Chloride 20 Meq Tabcr) 40 meq PO BIDWM [facility] Stop: 01/11/25 07:59 Last Admin: 12/12/24 08:17 Dose: 40 meq Thiamine HCl (Thiamine 100 Mg Tablet) 100 mg PO BID [facility] Stop: 12/16/24 20:59 Last Admin: 12/12/24 08:17 Dose: 100 mg Discontinued Medications Potassium Chloride (Kcl Ivpb) 10 meq in 100 mls @ 100 mls/hr IV X1 ONE Stop: 12/11/24 18:37 Last Infusion: 12/11/24 20:20 Dose: Infused Potassium Chloride (Kcl Ivpb) 10 meq in 100 mls @ 100 mls/hr IV X1 ONE Stop: 12/11/24 18:39 Last Infusion: 12/11/24 20:05 Dose: Infused Potassium Chloride (Kcl Ivpb) 10 meq in 100 mls @ 100 mls/hr IV X1 ONE Stop: 12/11/24 18:40 Last Infusion: 12/11/24 21:35 Dose: Infused Potassium Chloride (Kcl Ivpb) 10 meq in 100 mls @ 100 mls/hr IV X1 ONE Stop: 12/11/24 18:40 Last Infusion: 12/11/24 22:50 Dose: Infused Potassium Phosphate (Pot Phos 15 Mmol In Ns 250 Ml) 15 mmol in 250 mls @ 62.5 mls/hr IV Q4H [facility] Stop: 12/12/24 04:50 Last Admin: 12/12/24 05:00 Dose: 62.54 mls/hr Magnesium Sulfate (Magnesium Sulfate Ivpb) 2 gm in 50 mls @ 25 mls/hr IV X1 ONE Stop: 12/12/24 09:20 Last Admin: 12/12/24 08:17 Dose: 25 mls/hr Dextrose/Sodium Chloride (D5-1/2ns) 500 mls @ 100 mls/hr IV .Q5H ONE Stop: 12/12/24 13:29 Last Admin: 12/12/24 08:19 Dose: 100 mls/hr Lorazepam (Lorazepam 2 Mg/Ml Vial) 1 mg IV Q2HR PRN PRN Reason: CIWA SCORE 14-19 Stop: 12/16/24 18:58 Potassium Chloride (Potassium Chloride 20 Meq Tabcr) 40 meq PO X1 ONE Stop: 12/11/24 17:35 Last Admin: 12/11/24 17:52 Dose: 40 meq Potassium Chloride (Potassium Chloride 20 Meq Tabcr) 40 meq PO X1 ONE Stop: 12/11/24 18:55 Last Admin: 12/11/24 19:03 Dose: 40 meq Potassium Chloride (Potassium Chloride 20 Meq Tabcr) 40 meq PO BID [facility] Stop: 01/11/25 09:00 Potassium Phos/Sodium Phos (Naph,[facility] Mbdb 1 Packet (1.5 Gm)) 1 packet PO X1 ONE Stop: 12/12/24 07:27 Last Admin: 12/12/24 08:16 Dose: 1 packet Thiamine HCl (Thiamine Inj 100 Mg/Ml Vial 2 Ml) 100 mg IM STAT STA Stop: 12/11/24 19:00 Last Admin: 12/11/24 20:31 Dose: 100 mg Assessment & Plan Plan The patient is a 69-year-old female with significant past medical history of primary hypertension presented to ED with concerns of decreased mental status by her family. During our evaluation, she reported doing well, but appeared mildly confused. Further history were obtained from chart review. She was ADLs at her baseline, and was drinking well, and as the patient has been drinking 6-8 beers every day which she has been trying to cut down, there has been concern for noncompliance with her medications. Her last hospital visit was 6-month ago, when she was told to have have low potassium and was given potassium tablet for 4 to 5 days and recommended to follow-up with her PCP with labs which she never did. She denied any fever or chills, chest pain or SOB, nausea or vomiting. She also denied any diarrhea. During our evaluation, her vitals were stable with blood pressure 119/79, temperature 98.6 saturating 99% on room air. CBC was fairly stable, sodium had improved to 138 from 128 yesterday evening. Potassium 3.7, calculated osmolality 272, phosphorus 3.5, mild transaminitis with AST/ALT/ALP 100/84/134. Vitamin B12 level 1693, UA was fairly negative, U tox was negative. Head CT was negative, CTA head and neck was significant for 30 to 50% stenosis right carotid bifurcation origin, right internal carotid artery. No cerebral large vessel arterial occlusion. US liver revealed normal gallbladder, fatty liver, no focal liver lesions. PMH: As mentioned above PSHx: None Social history: Current smoker 1 pack/week, has been cutting down; drinks alcohol regularly 6-8 beers per day, denies any use of illicit drug use Medications: To be reconciled Nephrology consultation was done for further management of electrolyte imbalance. #Moderate hypoosmolar hypovolemic hyponatremia, improving Likely secondary to beer Potomania, as patient has been drinking 6-8 beers every day for a long time The patient presented with sodium of 128 12/12/2024: Sodium level 138, Rapid correction of hyponatremia -Started the patient on D5W, stop D5W if sodium level goes below 134 in 24 hours from the first sodium level of 128. -Continue to monitor sodium every 4 hourly -After 24-hour of goal correction of 134, the patient will be started on half NS. #Hypokalemia, improved Likely nutritional deficiency in the setting of poor oral intake with beer Potomania Presented with potassium 2.0 12/12/2024: Potassium 3.7 -Continue to monitor daily BMP -Replete as needed #Hypophosphatemia, improved Secondary to nutritional deficiencies in the setting of poor oral intake with beer potomania Presented with phosphorus level of 1.5 12/12/2024: Phosphorus 3.5 -Continue to monitor daily a.m. phosphorus level -Replete as needed #Acute encephalopathy #Progressive cognitive decline #CVA rule out #Possible benzodiazepine withdrawl #History of alcohol abuse #History of smoking #Alcohol withdrawal #Elevated liver enzymes #Hypertension #Sinus Tachycardia -Management deferred to primary hospitalist team Thank you for your opportunity to participate nephrology team in this patient care. The patient's management plan was discussed with my attending physician MD Ricky Corbett MD, PGY2 Attending Provider Attestation/Addendum Patient seen and examined with resident physician Dr. Smith. Note reviewed, agree with findings and recommendations. Significant electrolyte imbalance secondary to decreased p.o. intake in the setting of beer potomania. Agree with D5W to avoid overcorrection and potassium, phosphorus, magnesium supplementation. Plan of care discussed with Padmini. Thank you Padmini for allowing me to participate in the care of Ms. Gonzalez
--- NOTE | 2024-12-12 11:39 | PD.VPROG1 ---
Telemedicine visit statement This visit was conducted with the use of interactive audio and video telecommunications system that permits real time communication between the patient and the provider. Patient's verbal consent for virtual visit was obtained on 12/12/24 at 1139. Documentation for date of: 12/12/24 Subjective Subjective Interval history: Patient was seen in telemetry today with her family at the bedside. She denies any new symptoms including dizziness headache, weakness in the extremities or paresthesias. She has been having trouble with balance, memory and usual day-to-day activities without help. Virtual exam Vital Signs Temp Pulse Resp BP Pulse Ox O2 Del Method 98.6 F 84 19 119/79 99 Room Air 12/12/24 08:00 12/12/24 08:00 12/12/24 08:00 12/12/24 08:00 12/12/24 08:00 12/12/24 08:00 Objective Labs 12/12/24 05:17 12/12/24 10:00 Labs: Laboratory Results - last 24 hr 12/11/24 12/11/24 12/11/24 16:13 16:36 19:30 WBC 10.6 RBC 4.32 Hgb 14.1 Hct 37.4 MCV 87 MCH 32.6 MCHC 37.7 H RDW Std Deviation 41.0 Plt Count 374 Neut % (Auto) 73 Lymph % (Auto) 16 [place] % (Auto) 11 Eos % (Auto) 0 Baso % (Auto) 0 Neut # (Auto) 7.7 Lymph # (Auto) 1.6 [place] # (Auto) 1.2 H Eos # (Auto) 0.0 Baso # (Auto) 0.0 Immature Gran # (Auto) 0.06 H Absolute Nucleated RBC 0.00 Immature Gran % 1 H Nucleated RBC % 0 PT 11.2 INR 1.0 APTT 23.6 Sodium 128 L Potassium 2.0 L* Chloride 88 L Carbon Dioxide 29.4 Anion Gap 11 BUN 8 L Creatinine 0.6 Estim Creat Clear Calc 71.7 eGFR > 60 BUN/Creatinine Ratio 13 Glucose 101 Calculated Osmolality 255 L Calcium 8.9 Corrected Calcium 9.5 Phosphorus 1.5 L Magnesium 1.8 Total Bilirubin 1.1 AST 122 H ALT 93 H Alkaline Phosphatase 152 H Ammonia < 10 L Troponin I 0.039 Total Protein 5.8 Albumin 3.3 L Globulin 2.5 Albumin/Globulin Ratio 1.3 Triglycerides Cholesterol LDL Cholesterol, Calc HDL Cholesterol Cholesterol/HDL Ratio Vitamin B12 1693 H TSH 1.97 Ur Collection Type Clean Catch Urine Color Lt-Yellow Urine Clarity Clear Urine pH 7.0 Ur Specific [place] 1.017 Urine Protein Negative Urine Glucose (UA) Negative Urine Ketones 1+ A Urine Blood Negative Urine Nitrite Negative Urine Bilirubin Negative Urine Urobilinogen (Auto) Negative Ur Leukocyte Esterase Positive Urine RBC 1 Urine WBC 7 H Ur Squamous Epith Cells 1 Urine Bacteria None Urine Opiates Screen Negative Urine Fentanyl Screen Negative Ur Barbiturates Screen Negative U Amphetamin/Meth Scrn Negative U Benzodiazepines Scrn Negative U Cocaine Metab Screen Negative U Marijuana (THC) Screen Negative Ethyl Alcohol < 3.0 12/11/24 12/12/24 12/12/24 23:02 05:17 10:00 WBC 8.5 RBC 4.01 Hgb 12.9 Hct 35.6 L MCV 89 MCH 32.2 MCHC 36.2 RDW Std Deviation 43.1 Plt Count 308 D Neut % (Auto) 61 Lymph % (Auto) 26 [place] % (Auto) 12 Eos % (Auto) 1 Baso % (Auto) 0 Neut # (Auto) 5.2 Lymph # (Auto) 2.2 [place] # (Auto) 1.0 H Eos # (Auto) 0.1 Baso # (Auto) 0.0 Immature Gran # (Auto) 0.04 H Absolute Nucleated RBC 0.00 Immature Gran % 1 H Nucleated RBC % 0 PT INR APTT Sodium 134 L 138 136 Potassium 3.8 D 3.7 3.7 Chloride 99 102 103 Carbon Dioxide 29.9 28.5 28.4 Anion Gap 5 L 8 5 L BUN 7 L 6 L 6 L Creatinine 0.6 0.5 L 0.5 L Estim Creat Clear Calc 71.7 71.1 71.1 eGFR > 60 > 60 > 60 BUN/Creatinine Ratio 12 12 12 Glucose 78 82 150 H D Calculated Osmolality 265 L 272 L 272 L Calcium 8.6 8.3 7.9 L Corrected Calcium 9.2 9.2 8.8 Phosphorus 2.3 L 2.3 L 3.5 Magnesium 1.6 Total Bilirubin 0.7 AST 100 H ALT 84 H Alkaline Phosphatase 134 H Ammonia Troponin I Total Protein 5.1 L Albumin 3.2 L 2.9 L 2.9 L Globulin 2.2 L Albumin/Globulin Ratio 1.3 Triglycerides 108 Cholesterol 174 LDL Cholesterol, Calc 97 HDL Cholesterol 55 Cholesterol/HDL Ratio 3.2 L Vitamin B12 TSH Ur Collection Type Urine Color Urine Clarity Urine pH Ur Specific [place] Urine Protein Urine Glucose (UA) Urine Ketones Urine Blood Urine Nitrite Urine Bilirubin Urine Urobilinogen (Auto) Ur Leukocyte Esterase Urine RBC Urine WBC Ur Squamous Epith Cells Urine Bacteria Urine Opiates Screen Urine Fentanyl Screen Ur Barbiturates Screen U Amphetamin/Meth Scrn U Benzodiazepines Scrn U Cocaine Metab Screen U Marijuana (THC) Screen Ethyl Alcohol Assessment & Plan Problem List (1) Altered mental status: Status: Acute Assessment and plan: Most likely related to electrolyte abnormalities/acute on chronic alcohol related brain damage: dementia MRI brain did not show anything acute, chronic white matter changes consistent with small vessel disease. Ordered B12, vitamin D level, thiamine, folic acid EEG to evaluate further. Noted that she is not driving and her brother is taking financial responsibility. He also needs to take charge of medication administration completely upon discharge. (2) Electrolyte abnormality: Status: Acute Assessment and plan: Noted that initial labs showed hyponatremia, hypokalemia on admission and nephrology is on board. Now today's labs showed electrolytes within normal range (3) Chronic alcoholism: Status: Acute Assessment and plan: 40 years of drinking leading to chronic alcohol related brain damage/dementia Recommend to cut down on alcohol slowly to quit completely, cut down on benzos(alprazolam), take thiamine and folate every day, and focus on balanced nutrition. 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
[2024-12-12] MEDS: NICOTINE PATCH 14 MG/24 HR PATCH.TD24 TOP (14:05)
--- NOTE | 2024-12-12 15:37 | ESPR_ITS ---
Documentation for date of: 12/12/24 Subjective Subjective Interval history: No significant overnight events. Patient's sodium stable at 136 this morning, NS IVF was discontinued. On examination patient AOx3. Patient tolerating p.o. intake well. MRI was negative for any acute changes, patient pending further neurology recommendations. If stable patient most likely to be discharged home within 24 to 48 hours. Exam Vital Signs Temp Pulse Resp BP Pulse Ox O2 Del Method 99.0 F 90 18 120/78 99 Room Air 12/12/24 12:00 12/12/24 15:33 12/12/24 12:00 12/12/24 15:33 12/12/24 12:00 12/12/24 12:00 Objective Labs 12/13/24 05:12 12/13/24 05:12 Labs: Laboratory Results - last 24 hr 12/11/24 12/11/24 12/11/24 16:13 16:36 19:30 WBC 10.6 RBC 4.32 Hgb 14.1 Hct 37.4 MCV 87 MCH 32.6 MCHC 37.7 H RDW Std Deviation 41.0 Plt Count 374 Neut % (Auto) 73 Lymph % (Auto) 16 [place] % (Auto) 11 Eos % (Auto) 0 Baso % (Auto) 0 Neut # (Auto) 7.7 Lymph # (Auto) 1.6 [place] # (Auto) 1.2 H Eos # (Auto) 0.0 Baso # (Auto) 0.0 Immature Gran # (Auto) 0.06 H Absolute Nucleated RBC 0.00 Immature Gran % 1 H Nucleated RBC % 0 PT 11.2 INR 1.0 APTT 23.6 Sodium 128 L Potassium 2.0 L* Chloride 88 L Carbon Dioxide 29.4 Anion Gap 11 BUN 8 L Creatinine 0.6 Estim Creat Clear Calc 71.7 eGFR > 60 BUN/Creatinine Ratio 13 Glucose 101 Calculated Osmolality 255 L Calcium 8.9 Corrected Calcium 9.5 Phosphorus 1.5 L Magnesium 1.8 Total Bilirubin 1.1 AST 122 H ALT 93 H Alkaline Phosphatase 152 H Ammonia < 10 L Troponin I 0.039 Total Protein 5.8 Albumin 3.3 L Globulin 2.5 Albumin/Globulin Ratio 1.3 Triglycerides Cholesterol LDL Cholesterol, Calc HDL Cholesterol Cholesterol/HDL Ratio Vitamin B12 1693 H TSH 1.97 Ur Collection Type Clean Catch Urine Color Lt-Yellow Urine Clarity Clear Urine pH 7.0 Ur Specific Friend 1.017 Urine Protein Negative Urine Glucose (UA) Negative Urine Ketones 1+ A Urine Blood Negative Urine Nitrite Negative Urine Bilirubin Negative Urine Urobilinogen (Auto) Negative Ur Leukocyte Esterase Positive Urine RBC 1 Urine WBC 7 H Ur Squamous Epith Cells 1 Urine Bacteria None Urine Opiates Screen Negative Urine Fentanyl Screen Negative Ur Barbiturates Screen Negative U Amphetamin/Meth Scrn Negative U Benzodiazepines Scrn Negative U Cocaine Metab Screen Negative U Marijuana (THC) Screen Negative Ethyl Alcohol < 3.0 12/11/24 12/12/24 12/12/24 23:02 05:17 10:00 WBC 8.5 RBC 4.01 Hgb 12.9 Hct 35.6 L MCV 89 MCH 32.2 MCHC 36.2 RDW Std Deviation 43.1 Plt Count 308 D Neut % (Auto) 61 Lymph % (Auto) 26 [place] % (Auto) 12 Eos % (Auto) 1 Baso % (Auto) 0 Neut # (Auto) 5.2 Lymph # (Auto) 2.2 [place] # (Auto) 1.0 H Eos # (Auto) 0.1 Baso # (Auto) 0.0 Immature Gran # (Auto) 0.04 H Absolute Nucleated RBC 0.00 Immature Gran % 1 H Nucleated RBC % 0 PT INR APTT Sodium 134 L 138 136 Potassium 3.8 D 3.7 3.7 Chloride 99 102 103 Carbon Dioxide 29.9 28.5 28.4 Anion Gap 5 L 8 5 L BUN 7 L 6 L 6 L Creatinine 0.6 0.5 L 0.5 L Estim Creat Clear Calc 71.7 71.1 71.1 eGFR > 60 > 60 > 60 BUN/Creatinine Ratio 12 12 12 Glucose 78 82 150 H D Calculated Osmolality 265 L 272 L 272 L Calcium 8.6 8.3 7.9 L Corrected Calcium 9.2 9.2 8.8 Phosphorus 2.3 L 2.3 L 3.5 Magnesium 1.6 Total Bilirubin 0.7 AST 100 H ALT 84 H Alkaline Phosphatase 134 H Ammonia Troponin I Total Protein 5.1 L Albumin 3.2 L 2.9 L 2.9 L Globulin 2.2 L Albumin/Globulin Ratio 1.3 Triglycerides 108 Cholesterol 174 LDL Cholesterol, Calc 97 HDL Cholesterol 55 Cholesterol/HDL Ratio 3.2 L Vitamin B12 TSH Ur Collection Type Urine Color Urine Clarity Urine pH Ur Specific Friend Urine Protein Urine Glucose (UA) Urine Ketones Urine Blood Urine Nitrite Urine Bilirubin Urine Urobilinogen (Auto) Ur Leukocyte Esterase Urine RBC Urine WBC Ur Squamous Epith Cells Urine Bacteria Urine Opiates Screen Urine Fentanyl Screen Ur Barbiturates Screen U Amphetamin/Meth Scrn U Benzodiazepines Scrn U Cocaine Metab Screen U Marijuana (THC) Screen Ethyl Alcohol Quality Measures Quality Measures stroke Suspected type of Stroke: Non Acute Tenecteplase given: Reason(s) Tenecteplase not given: Outside the time window not given Rehab services: PT evaluation ordered VTE Prophylaxis: not indicated Antithrombotic by day 2:: not indicated (describe) Statin ordered: not ordered Anticoagulation ordered for A- fib or flutter (current or hx): not indicated Advance care planning discussed with:: other Assessment & Plan Assessment Current Active Medications: Generic Name Dose Route Start Last Admin Trade Name Freq PRN Reason Stop Dose Admin Acetaminophen 650 mg 12/11/24 18:37 Acetaminophen 325 Mg Tablet PO 01/10/25 18:36 Q6H PRN Fever >101.5 Acetaminophen 650 mg 12/11/24 18:37 Acetaminophen 325 Mg Tablet PO 01/10/25 18:36 Q6H PRN PAIN SCALE 1-3 (mild Folic Acid 1 mg 12/11/24 21:00 12/12/24 08:17 Folic Acid 1 Mg Tablet PO 12/16/24 20:59 1 mg BID JUANY Administration Heparin Sodium (Porcine) 5,000 unit 12/11/24 21:30 12/12/24 08:30 Heparin Sod Inj 5000 Unit/Ml Vial SC 12/25/24 21:29 5,000 unit Q12HR JUANY Administration Sodium Chloride 1,000 mls @ 100 mls/hr 12/11/24 16:00 12/12/24 03:00 Ns IV 100 mls/hr Q10H JUANY Administration Dextrose 1,000 mls @ 75 mls/hr 12/12/24 09:45 12/12/24 11:17 D5w IV 01/11/25 09:44 75 mls/hr .[id number] JUANY Administration Lorazepam 0.5 mg 12/11/24 18:59 Lorazepam 0.5 Mg Tablet PO 12/16/24 18:58 Q4HR PRN CIWA Score 2-6 Lorazepam 1 mg 12/11/24 18:59 Lorazepam 0.5 Mg Tablet PO 12/16/24 18:58 Q4HR PRN CIWA SCORE 7-11 Lorazepam 2 mg 12/11/24 18:59 Lorazepam 0.5 Mg Tablet PO 12/16/24 18:58 Q4HR PRN CIWA SCORE 12-15 Lorazepam 2 mg 12/11/24 18:59 Lorazepam 2 Mg/Ml Vial IV 12/16/24 18:58 Q2HR PRN CIWA SCORE 20-25 Lorazepam 1 mg 12/12/24 08:09 Lorazepam 2 Mg/Ml Vial IV 12/16/24 18:58 Q2HR PRN CIWA SCORE 16-19 Multivitamins/Minerals 15 ml 12/11/24 19:15 12/12/24 08:16 Multivitamin 15 Ml Udc PO 01/10/25 19:14 15 ml QDAY JUANY Administration Nicotine 14 mg 12/12/24 13:50 12/12/24 14:05 Nicotine Patch 14 Mg/24 Hr Patch.Td24 TOP 01/11/25 13:49 14 mg QDAY JUANY Administration Nifedipine 30 mg 12/11/24 20:25 12/12/24 15:33 Nifedipine Xl 30 Mg Tabcr PO 01/10/25 20:24 30 mg TID JUANY Administration Ondansetron HCl 4 mg 12/11/24 15:53 Ondansetron Inj 2 Mg/Ml Inj 2 Ml IV 01/10/25 15:52 Q4HR PRN NAUSEA OR VOMITING Potassium Chloride 40 meq 12/12/24 08:00 12/12/24 08:17 Potassium Chloride 20 Meq Tabcr PO 01/11/25 07:59 40 meq BIDWM JUANY Administration Thiamine HCl 100 mg 12/11/24 21:00 12/12/24 08:17 Thiamine 100 Mg Tablet PO 12/16/24 20:59 100 mg BID JUANY Administration Plan 69 years old female with Past medical history of hypertension being admitted for evaluation and management of Acute encephalopathy in setting of electrolyte imbalance and decreased oral intake. #Acute encephalopathy #Progressive cognitive decline #CVA rule out #Possible benzodiazepine withdrawl Likely toxic metabolic in setting of progressive cognitive decline Patient has low sodium, potassium and chloride Patient has been having low oral intake recently, also has history of regular alcohol intake Stroke alert was called in the ED Head CT was negative for acute hemorrhage, mass effect or midline shift. CTA head/neck shows 30-50% stenosis right carotid bifurcation origin right internal carotid artery No cerebral large vessel arterial occlusions. Tele neurology was consulted, who recommended brain MRI and workup for toxic metabolic causes of encephalopathy. Brain MRI indicated Prominent chronic microvascular white matter change Ammonia, TSH and B12 within normal limits Drug screen and alcohol level negative Plan: We will continue frequent neurochecks, seizure precautions, obtain swallow screen, physical therapy and speech therapy Neurologist Dr Garcia consulted, recommendations are greatly appreciated #Electrolyte imbalances #Hyponatremia #Hypokalemia #Hypochloremia Likely secondary to decreased oral intake Noted to have NA 128, K 2.0 and Cl 98 Patient received 40 mEq PO and was started on 40 Iv of Kcl in the ED We will add 40 more orally for tonight Started on 40 mEq BID PO from tomorrow morning We will continue with NS at 100cc/hr started in the ED Sodium stable at 136 Plan: Nephrology Dr. Harry consulted, recommendations are greatly appreciated Replete electrolytes as needed We will monitor the level frequently and adjust the supplementation #History of alcohol abuse #History of smoking #Alcohol withdrawal The son stated he has been trying to taper her alcohol intake and smoking at home, last drink 3 days back Negative urine toxicology including blood alcohol level Plan: Started patient on CIWA protocol Started on thiamine, folate and multivitamin We will monitor symptoms of withdrawal closely #Elevated liver enzymes, improving Likely related to alcohol abuse Has AST/ ALT/ALP/ T Sunny of 122, 93, 152, 1.1 Lower ultrasound indicative of fatty liver with normal adrenals and normal gallbladder Plan: Continue monitoring daily liver enzymes #Hypertension Blood pressure of 161/103 on arrival Patient takes Nifedipine at home, dose unclear Plan: Start patient on nifedipine 30mg TID Will adjust antihypertensive regimen based on response #Sinus Tachycardia Likely related to dehydration, withdrawls We will monitor closely Health Maintenance Dispo: Patient admitted for altered mental status, neurology and nephrology consulted Diet: Regular diet DVT/PPx: None GI ppx: Protonix Lines: PIV. Code Status: Full code This patient care was discussed with my attending Dr. Eric Riley MD PGY-2 Disclaimer: Minor errors in licensed clinician may be present since this note was dictated by speech recognition software. Attending Provider Attestation/Addendum I attest that I was physically present for the evaluation, physical examination, lab and imaging review of the patient with the residents. I discussed the case with the residents and agree with the findings and plans of care as documented above. Padmini Reyes MD
--- NOTE | 2024-12-12 16:08 | PC.SS ---
Lashae Gonzalez is a 69-year-old female admitted to [facility] for AMS. SS conducted bedside contact with the pt but she was still confused and was unable to answer demographic information therefore, SS reached out to pt Brother Quang Gonzalez [phone]. Role and reason explained to Quang. Quang verified demographic information on behalf of the pt. He confirmed he is her surrogate decision maker. Quang reports the pt and himself along with their other brother all live on the same property and he helps the pt with all her needs. DC options discussed and Quang refused SNF and HH services. Per Quang pt has a great support system at home and they will do their best to ensure the pt well taken care. Quang reports having a FWW, and a cane. Pts PCP is Dr. Ward Blackmon. Pts pharmacy of choice is [facility] in [place]. No further needs identified. SS will remain available for any additional needs. Plan: Home DM: Brother Quang [phone] PCP: Lorri Hopper
[2024-12-12 16:40] LABS: Albumin, Serum 2.9 gm/dL (3.4-4.8); Anion Gap 6 (7-16); BUN/Creatinine Ratio 10 Ratio (12-20); Blood Urea Nitrogen < 5 mg/dL (9-23); Calcium 8.2 mg/dL (8.3-10.6); Calcium (Corrected) 9.1 mg/dL (8.5-10.1); Chloride 100 mMol/L (98-107); Creatinine (Component) 0.5 mg/dL (0.6-1.3); Estimated Creatinine Clearance 71.1 mL/min (>60); Glucose 100 mg/dL (74-106); Osmolality,Calculated 263 (275-295); Phosphorous 2.2 mg/dL (2.4-5.1); Potassium 3.6 mMol/L (3.4-5.1); Sodium 133 mMol/L (136-145); eGFR > 60 See Note
[2024-12-12] MEDS: POTASSIUM CHLORIDE 10% 20 MEQ/15 ML UDC 40 MEQ PO (18:10)
[2024-12-13] VITALS (7 sets, daily range): BP systolic 99–146; BP diastolic 64–91; PULSE 77–113; RESP 16–23; TEMP 36.3–36.6; O2SAT 95–98; BMI 17.2
[2024-12-13] MEDS: NIFEdipine XL 30 MG TABCR PO ×2 (05:14→15:22)
[2024-12-13 05:55] LABS: Basophils % (Auto) 0 % (0-2.5); Eosinophils # (Auto) 0.3 Thou/mm3 (0.0-0.5); Eosinophils % (Auto) 3 % (0-10); Hematocrit 31.3 % (36.0-46.0); Hemoglobin 11.3 g/dL (12.0-16.0); Immature Granulocytes % (Auto) 1 % (0-0); Immature Granulocytes Auto 0.08 Thou/mm3 (0.00-0.00); Lymphocytes # (Auto) 3.4 Thou/mm3 (1.0-4.8); Lymphocytes % (Auto) 35 % (10-50); Mean Corpuscular HGB Conc 36.1 g/dl (31.0-37.0); Mean Corpuscular Hemoglobin 32.3 pg (25.0-35.0); Mean Corpuscular Volume 89 fL (80-100); Monocytes # (Auto) 0.8 Thou/mm3 (0.0-0.8); Monocytes % (Auto) 9 % (0-12); Neutrophils % (Auto) 52 % (37-80); Nucleated Red Blood Cell % 0 /100 WBC (0); Platelet Count 301 Thou/mm3 (140-440); RDW Standard Deviation 43.8 fL (36.4-46.3); White Blood Count 9.7 Thou/mm3 (3.6-11.0)
[2024-12-13 06:46] LABS: Alanine Aminotransferase 61 U/L (10-49); Albumin, Serum 2.7 gm/dL (3.4-4.8); Albumin/Globulin Ratio 1.4 (1.2-2.2); Alkaline Phosphatase 110 U/L (46-116); Anion Gap 6 (7-16); Aspartate Amino Transferase 60 U/L (0-34); BUN/Creatinine Ratio 13 Ratio (12-20); Bilirubin,Total 0.4 mg/dL (0.3-1.2); Blood Urea Nitrogen < 5 mg/dL (9-23); Calcium 8.1 mg/dL (8.3-10.6); Calcium (Corrected) 9.1 mg/dL (8.5-10.1); Carbon Dioxide 25.8 mMol/L (20.0-31.0); Chloride 100 mMol/L (98-107); Creatinine (Component) 0.4 mg/dL (0.6-1.3); Estimated Creatinine Clearance 95.3 mL/min (>60); Glucose 103 mg/dL (74-106); Magnesium 1.6 mg/dL (1.6-2.6); Osmolality,Calculated 261 (275-295); Potassium 3.8 mMol/L (3.4-5.1); Sodium 132 mMol/L (136-145); Total Protein 4.7 gm/dL (5.7-8.2); eGFR > 60 See Note
[2024-12-13] MEDS: cefTRIAXone 1,000 MG in SODIUM CHLORIDE 0.9% (P) 50 ML 100 MG IV (08:40)
[2024-12-13] MEDS: NICOTINE PATCH 14 MG/24 HR PATCH.TD24 TOP (08:41)
[2024-12-13] MEDS: HEPARIN SOD INJ 5000 UNIT/ML VIAL SC (08:41)
[2024-12-13] MEDS: FOLIC ACID 1 MG TABLET PO (08:42)
[2024-12-13] MEDS: POTASSIUM CHLORIDE 10% 20 MEQ/15 ML UDC 40 MEQ PO (08:42)
[2024-12-13] MEDS: THIAMINE 100 MG TABLET PO (08:42)
[2024-12-13] MEDS: MULTIVITAMINS TABLET 1 TAB PO (08:42)
[2024-12-13] MEDS: PANTOPRAZOLE 20 MG TABLET PO (08:43)
[2024-12-13] MEDS: NAPH,KPH MBDB 1 PACKET (1.5 GM) PO (08:46)
--- NOTE | 2024-12-13 09:23 | PD.NEPHPROG ---
Documentation for date of: 12/13/24 Subjective Subjective Interval history: patient is a 69-year-old female with significant past medical history of primary hypertension presented to ED with concerns of decreased mental status by her family. During our evaluation, she reported doing well, but appeared mildly confused. Further history were obtained from chart review. She was ADLs at her baseline, and was drinking well, and as the patient has been drinking 6-8 beers every day which she has been trying to cut down, there has been concern for noncompliance with her medications. Her last hospital visit was 6-month ago, when she was told to have have low potassium and was given potassium tablet for 4 to 5 days and recommended to follow-up with her PCP with labs which she never did. She denied any fever or chills, chest pain or SOB, nausea or vomiting. She also denied any diarrhea. During our evaluation, her vitals were stable with blood pressure 119/79, temperature 98.6 saturating 99% on room air. CBC was fairly stable, sodium had improved to 138 from 128 yesterday evening. Potassium 3.7, calculated osmolality 272, phosphorus 3.5, mild transaminitis with AST/ALT/ALP 100/84/134. Vitamin B12 level 1693, UA was fairly negative, U tox was negative. Head CT was negative, CTA head and neck was significant for 30 to 50% stenosis right carotid bifurcation origin, right internal carotid artery. No cerebral large vessel arterial occlusion. US liver revealed normal gallbladder, fatty liver, no focal liver lesions. 12/13/2024 Exam Vital Signs Temp Pulse Resp BP Pulse Ox O2 Del Method 36.3 C 85 20 99/70 98 Room Air 12/13/24 08:00 12/13/24 08:00 12/13/24 08:00 12/13/24 08:00 12/13/24 08:00 12/13/24 04:00 Objective Labs 12/13/24 05:12 12/13/24 05:12 Labs: Laboratory Results - last 24 hr 12/12/24 12/12/24 12/13/24 10:00 16:05 05:12 WBC 9.7 RBC 3.50 L Hgb 11.3 L Hct 31.3 L MCV 89 MCH 32.3 MCHC 36.1 RDW Std Deviation 43.8 Plt Count 301 Neut % (Auto) 52 Lymph % (Auto) 35 [place] % (Auto) 9 Eos % (Auto) 3 Baso % (Auto) 0 Neut # (Auto) 5.0 Lymph # (Auto) 3.4 [place] # (Auto) 0.8 Eos # (Auto) 0.3 Baso # (Auto) 0.0 Immature Gran # (Auto) 0.08 H Absolute Nucleated RBC 0.00 Immature Gran % 1 H Nucleated RBC % 0 Sodium 136 133 L 132 L Potassium 3.7 3.6 3.8 Chloride 103 100 100 Carbon Dioxide 28.4 27.0 25.8 Anion Gap 5 L 6 L 6 L BUN 6 L < 5 L < 5 L Creatinine 0.5 L 0.5 L 0.4 L Estim Creat Clear Calc 71.1 71.1 95.3 eGFR > 60 > 60 > 60 BUN/Creatinine Ratio 12 10 L 13 Glucose 150 H D 100 D 103 Calculated Osmolality 272 L 263 L 261 L Calcium 7.9 L 8.2 L 8.1 L Corrected Calcium 8.8 9.1 9.1 Phosphorus 3.5 2.2 L 2.0 L Magnesium 1.6 Total Bilirubin 0.4 AST 60 H ALT 61 H Alkaline Phosphatase 110 D Total Protein 4.7 L Albumin 2.9 L 2.9 L 2.7 L Globulin 2.0 L Albumin/Globulin Ratio 1.4 Assessment & Plan Assessment and plan (1) Altered mental status: Status: Acute (2) Electrolyte abnormality: Status: Acute (3) Chronic alcoholism: Status: Acute Additional Assessment & Plan Additional Plan: 69-year-old female with significant past medical history of primary hypertension presented to ED with concerns of decreased mental status by her family. During our evaluation, she reported doing well, but appeared mildly confused. Further history were obtained from chart review. She was ADLs at her baseline, and was drinking well, and as the patient has been drinking 6-8 beers every day which she has been trying to cut down, there has been concern for noncompliance with her medications. Her last hospital visit was 6-month ago, when she was told to have have low potassium and was given potassium tablet for 4 to 5 days and recommended to follow-up with her PCP with labs which she never did. She denied any fever or chills, chest pain or SOB, nausea or vomiting. She also denied any diarrhea. During our evaluation, her vitals were stable with blood pressure 119/79, temperature 98.6 saturating 99% on room air. CBC was fairly stable, sodium had improved to 138 from 128 yesterday evening. Potassium 3.7, calculated osmolality 272, phosphorus 3.5, mild transaminitis with AST/ALT/ALP 100/84/134. Vitamin B12 level 1693, UA was fairly negative, U tox was negative. Head CT was negative, CTA head and neck was significant for 30 to 50% stenosis right carotid bifurcation origin, right internal carotid artery. No cerebral large vessel arterial occlusion. US liver revealed normal gallbladder, fatty liver, no focal liver lesions. Nephrology consultation was done for further management of electrolyte imbalance. #Moderate hypoosmolar hypovolemic hyponatremia, improving Likely secondary to beer Potomania, as patient has been drinking 6-8 beers every day for a long time The patient presented with sodium of 128 Sodium seems to be better. DC IV fluids. Sodium will AutoCorrect. Continue with free water restriction. #Hypokalemia, improved Likely nutritional deficiency in the setting of poor oral intake with beer Potomania Presented with potassium 2.0 12/13/2024: Potassium 3.8--currently on 40 mEq p.o. potassium. -Continue to monitor daily BMP -Replete as needed #Hypophosphatemia, improved Secondary to nutritional deficiencies in the setting of poor oral intake with beer potomania Presented with phosphorus level of 1.5 12/13/2024: Phosphorus 2.0-on Neutra-Phos -Continue to monitor daily a.m. phosphorus level -Replete as needed #Acute encephalopathy #Progressive cognitive decline #CVA rule out #Possible benzodiazepine withdrawl #History of alcohol abuse #History of smoking #Alcohol withdrawal #Elevated liver enzymes #Hypertension #Sinus Tachycardia -Management deferred to primary hospitalist team
--- NOTE | 2024-12-13 10:02 | ESDS_ITS ---
<Statement entered by Maikel Riley MD - 12/14/24 07:02> I discussed with and supervised the editing internship physician involved in the care of this patient. Patient assessment and plan was discussed with entire medicine team, including my attending. I agree with the assessment and plan as documented by editing internship doctor. Patient care was discussed with my attending physician Dr. Eric Riley, PGY-2 Planned Discharge Date 12/13/24 DS: Providers Provider Date of admission: 12/11/24 18:37 Primary care physician: Ward Blackmon MD Admitting Provider: Padmini Reyes MD Attending Provider on Admission: Padmini Reyes MD Consults: 12/11/24 15:54 Consult to Neurology / Tele-Neurology Routine Comment: Consulting Provider: [facility] 12/11/24 18:40 Consult to Nephrology Routine Comment: Consulting Provider: Judi Harry 12/11/24 18:58 Consult to Neurology / Tele-Neurology Routine Comment: Altered mental status Consulting Provider: Joey Garcia 12/11/24 19:03 Referral Physical Therapy Routine Comment: Physician Instructions: Referral Speech Therapy Routine Comment: Attending Provider on DC: Lino Lewis MD Discharging Provider: Lino Lewis MD DS: Diagnosis Problem List Completed Was Problem List Reviewed/Reconciled?: Yes Hospital Course Hospital Course Hospital course: 69 years old female with Past medical history of hypertension being admitted for evaluation and management of Acute encephalopathy in setting of electrolyte imbalance and decreased oral intake. With regards to patient's acute encephalopathy. Head CT was negative for acute hemorrhage, mass effect or midline shift. CTA head/neck showed 30-50% stenosis of right carotid bifurcation, right internal carotid artery. Brain MRI indicated prominent chronic microvascular white matter change. Her ammonia, TSH and B12 were all within normal limits. Neurology, Dr. Garcia was consulted. The etiology of altered mental status was deemed to be secondary to her electrolyte abnormalities primary. After her electrolyte abnormalities were corrected, mentation returned to baseline. Also her 14-year drinking history led to chronic alcohol-related brain damage/dementia. Neurology recommended to taper alcohol slowly until she can quit completely and cut down on alprazolam. Along with thiamine and folate every day. For patient's electrolyte abnormalities including hyponatremia, hypokalemia, hypophosphatemia and hypomagnesemia she was treated with IV replacements. Patient's hypertension was treated with nifedipine 30 Mg p.o. 3 times daily. Her blood pressures were on the lower side with systolics blood pressure between 90s/100s. Upon discharge will resume her home dose of nifedipine XL 60 Mg p.o. daily. Patient's labs are now returning to baseline. Patient is now clinically stable and fit for discharge to home. Discharge diagnoses: 1. Altered mental status secondary to acute metabolic encephalopathy?resolving 2. Chronic alcoholism 3. Nicotine dependence 4. Moderate hypoosmolar hypovolemic hyponatremia?resolving 5. Hypokalemia?resolved 6. Hypophosphatemia?resolving 7. Hypochloremia?resolved 8. CVA ruled out 9. Transaminitis?resolving 10. Primary hypertension 11. Sinus tachycardia?resolving Discharge plan: - We have decreased the dose of your Xanax to one tablet at night. - We have started you on an antibiotic for urine infection. Take 1 tablet twice a day for 6 more days. - We have started you on a potassium supplement. Please take one tablet once a day for 7 more days. - You have been started on a phosphorus supplement. Please take one packet once a day for 7 more days. - You have been started on Thiamine supplement. Please take one tablet once a day for 1 month. - We have started you on a blood pressure medication. Please take one tablet once a day. - Please follow up with Neurologist, Dr. Garcia within 1-2 weeks of discharge. - Please follow up with Surgeon Assistant, Dr. Harry within 1-2 weeks of discharge. - Follow up with your primary care physician within 1 week of discharge. If you do not have a primary care physician, please follow up with the [facility] ([phone]) ? If you experience any new, worsening or persistent symptoms either call your primary doctor, or dial 911 or present to the emergency department.\ We are grateful to be able to participate in Ms. Gonzalez' care. We wish her the best. Plan of care discussed with Attending Dr. Reyes and PGY2 Dr. Rosemary Lewis MD PGY 1 Time spent discussing smoking cessation with patient: more than 10 minutes (15) Time Spent with Patient Time attestation: Total time spent providing and/or coordinating discharge services: Time spent: Greater than 30 minutes (37) Quality: Stroke Pt Provided Written Stroke Discharge Instructions: Yes Exam Vital Signs Temp Pulse Resp BP Pulse Ox O2 Del Method 97.3 F 85 20 99/70 98 Room Air 12/13/24 08:00 12/13/24 08:00 12/13/24 08:00 12/13/24 08:00 12/13/24 08:00 12/13/24 04:00 Narrative Exam Constitutional Alert, oriented x 2 [Person and time] and comfortable. Elderly female, frail. HEENT Vision grossly intact. Patent nares. Trachea midline Respiratory Chest normal on inspection and clear auscultation bilaterally Cardiovascular S1 and S2 audible, RRR. No murmurs carotid bruit. No gross JVD. Abdominal Soft and non tender to palpation in all quadrants. BS + Genitourinary No bladder tenderness, no flank pain. Normal to palpation Musculoskeletal Extremities tone within normal limits. No LE edema. Neurological CN II - XII grossly intact. Extremity motor and sensation grossly intact. Skin Warm, dry and intact. No apparent lesions. Psychiatric Patient has good affect, is cooperative Discharge Plan Plan Patient Disposition: HOME (Self Care) Disposition Comment: Stable for discharge Care Plan Goals: - We have decreased the dose of your Xanax to one tablet at night. - We have started you on an antibiotic for urine infection. Take 1 tablet twice a day for 6 more days. - We have started you on a potassium supplement. Please take one tablet once a day for 7 more days. - You have been started on a phosphorus supplement. Please take one packet once a day for 7 more days. - You have been started on Thiamine supplement. Please take one tablet once a day for 1 month. - We have started you on a blood pressure medication. Please take one tablet once a day. - Please follow up with Neurologist, Dr. Garcia within 1-2 weeks of discharge. - Please follow up with Surgeon Assistant, Dr. Harry within 1-2 weeks of discharge. - Follow up with your primary care physician within 1 week of discharge. If you do not have a primary care physician, please follow up with the [facility] ([phone]) ? If you experience any new, worsening or persistent symptoms either call your primary doctor, or dial 911 or present to the emergency department. Prescriptions/Referrals Prescriptions/Med Rec: New thiamine HCl (vitamin B1) 50 mg tablet 50 mg PO QDAY Qty: 30 0RF Phospho-Madeline 250 Neutral 250 mg tablet 1 tab PO QDAY Qty: 7 0RF potassium chloride 20 mEq packet 20 meq PO QDAY Qty: 7 0RF amoxicillin-pot clavulanate [Augmentin] 500-125 mg tablet 1 tab PO BID Qty: 12 0RF Continued nifedipine 60 mg tablet extended release 60 mg PO QDAY Discontinued alprazolam [Xanax] 0.5 mg tablet 0.5 mg PO TID Referrals: Piero ([facility])Judi MD [Referring Provider] - Ward Blackmon MD [Primary Care Provider] - Joey Garcia MD [Physician] - Patient/Caregiver Discharge Instructions Education Materials: Alcohol Addiction Print Language: Spanish Stand Alone Forms: Nikki Award Info., Patient Portal Info Letter Discharge Order Discharge Orders: Discharge (Routine); Ordered 12/13/24 Ordered By: Lino Lewis Quality Discharge Quality Measures VTE prophylaxis Attestestation MD Attestation I attest that I was physically present for the evaluation, physical examination, lab and imaging review of the patient with the residents. I discussed the case with the residents and agree with the findings and plans of care as documented above. Padmini Reyes MD
[2024-12-13] MEDS: Magnesium Sulfate 4 GM Ivpb 4 GM/50 ML BAG IV (10:12)
--- NOTE | 2024-12-13 14:26 | PC.SS ---
SS spoke to Quang, pt brother he is on his way. Per Quang, he will be taking pt home today no needs identified.
--- NOTE | 2024-12-13 22:46 | PD.VPROG1 ---
Telemedicine visit statement This visit was conducted with the use of interactive audio and video telecommunications system that permits real time communication between the patient and the provider. Patient's verbal consent for virtual visit was obtained on 12/13/24 at 2246. Documentation for date of: 12/13/24 Subjective Subjective Interval history: Patient was seen in telemetry today with her family at the bedside. She denies any new symptoms including dizziness headache, weakness in the extremities or paresthesias. She has been having trouble with balance, memory and usual day-to-day activities without help. Virtual exam Vital Signs Temp Pulse Resp BP Pulse Ox O2 Del Method 97.8 F 86 16 125/78 97 Room Air 12/13/24 14:00 12/13/24 15:22 12/13/24 14:00 12/13/24 15:22 12/13/24 14:00 12/13/24 14:00 Objective Labs 12/13/24 05:12 12/13/24 05:12 Labs: Laboratory Results - last 24 hr 12/13/24 05:12 WBC 9.7 RBC 3.50 L Hgb 11.3 L Hct 31.3 L MCV 89 MCH 32.3 MCHC 36.1 RDW Std Deviation 43.8 Plt Count 301 Neut % (Auto) 52 Lymph % (Auto) 35 Burke % (Auto) 9 Eos % (Auto) 3 Baso % (Auto) 0 Neut # (Auto) 5.0 Lymph # (Auto) 3.4 Burke # (Auto) 0.8 Eos # (Auto) 0.3 Baso # (Auto) 0.0 Immature Gran # (Auto) 0.08 H Absolute Nucleated RBC 0.00 Immature Gran % 1 H Nucleated RBC % 0 Sodium 132 L Potassium 3.8 Chloride 100 Carbon Dioxide 25.8 Anion Gap 6 L BUN < 5 L Creatinine 0.4 L Estim Creat Clear Calc 95.3 eGFR > 60 BUN/Creatinine Ratio 13 Glucose 103 Calculated Osmolality 261 L Calcium 8.1 L Corrected Calcium 9.1 Phosphorus 2.0 L Magnesium 1.6 Total Bilirubin 0.4 AST 60 H ALT 61 H Alkaline Phosphatase 110 D Total Protein 4.7 L Albumin 2.7 L Globulin 2.0 L Albumin/Globulin Ratio 1.4 Assessment & Plan Problem List (1) Altered mental status: Status: Acute Assessment and plan: Most likely related to electrolyte abnormalities/acute on chronic alcohol related brain damage: dementia MRI brain did not show anything acute, chronic white matter changes consistent with small vessel disease. Ordered B12, vitamin D level, thiamine, folic acid EEG to evaluate further. Noted that she is not driving and her brother is taking financial responsibility. He also needs to take charge of medication administration completely upon discharge. (2) Electrolyte abnormality: Status: Acute Assessment and plan: Noted that initial labs showed hyponatremia, hypokalemia on admission and nephrology is on board. Now today's labs showed electrolytes within normal range (3) Chronic alcoholism: Status: Acute Assessment and plan: 40 years of drinking leading to chronic alcohol related brain damage/dementia Recommend to cut down on alcohol slowly to quit completely, cut down on benzos(alprazolam), take thiamine and folate every day, and focus on balanced nutrition. Needs counseling housekeeping worker should provide resources for alcohol and drug rehabilitation
[2024-12-14 05:07] LABS: Folate > 24.00 ng/mL (>5.38); Vitamin D 25 Hydroxy Total 33.9 ng/mL (7.3-40.2)
== END 2024-12-13 15:41 | disposition home or self-care (01) | DRG 71 ==
LOC: SERX 18:47 → SERHOLD 19:06 → S2NX 12-12 04:20
PROVIDERS: Psychiatry & Neurology Neurology; Admitting Provider Student in an Organized Health Care Education/Training Program; Emergency Provider Emergency Medicine; PCP Family Medicine; Visit Provider Student in an Organized Health Care Education/Training Program
DX: G93.41 Metabolic encephalopathy (principal); E87.1 Hypo-osmolality and hyponatremia; F10.239 Alcohol dependence with withdrawal, unspecified; E87.6 Hypokalemia; E87.8 Other disorders of electrolyte and fluid balance, not elsewhere classified; E83.39 Other disorders of phosphorus metabolism; I10 Essential (primary) hypertension; E86.1 Hypovolemia; G93.9 Disorder of brain, unspecified; R00.0 Tachycardia, unspecified; I65.21 Occlusion and stenosis of right carotid artery; F03.90 Unspecified dementia, unspecified severity, without behavioral disturbance, psychotic disturbance, mood disturbance, and anxiety; E86.0 Dehydration; E83.42 Hypomagnesemia; K76.0 Fatty (change of) liver, not elsewhere classified; F17.210 Nicotine dependence, cigarettes, uncomplicated; Z91.148 Patient's other noncompliance with medication regimen for other reason; Z86.16 Personal history of COVID-19; Z88.2 Allergy status to sulfonamides
CPT/HCPCS: 36415; 70450; 70496; 70498; 70553; 76705; 80053; 80061; 80069; 80307; 80320; 81001; 82088; 82140; 82306; 82607; 82652; 82746; 83735; 84100; 84244; 84425; 84443; 84484; 85025; 85610; 85730; 87077; 87086; 87186; 92610; 95816; A4649; A9579; J0696; J1643; J3411; J3475; J3480; J7030; J7042; J7050; J7070; J7999; Q9967; A9270; G0480

== ENCOUNTER → 2025-07-22 | Outpatient (CLI) | payer MEDICARE, SELFPAY ==
[2025-07-22 08:35] LABS: Basophils # (Auto) 0.0 Thou/mm3 (0.0-0.2); Basophils % (Auto) 1 % (0-2.5); Eosinophils # (Auto) 0.2 Thou/mm3 (0.0-0.5); Eosinophils % (Auto) 2 % (0-10); Hematocrit 39.8 % (36.0-46.0); Hemoglobin 13.1 g/dL (12.0-16.0); Immature Granulocytes Auto 0.02 Thou/mm3 (0.00-0.00); Lymphocytes # (Auto) 1.8 Thou/mm3 (1.0-4.8); Lymphocytes % (Auto) 24 % (10-50); Mean Corpuscular HGB Conc 32.9 g/dl (31.0-37.0); Mean Corpuscular Hemoglobin 30.0 pg (25.0-35.0); Mean Corpuscular Volume 91 fL (80-100); Monocytes # (Auto) 0.6 Thou/mm3 (0.0-0.8); Monocytes % (Auto) 7 % (0-12); Neutrophils # (Auto) 5.0 Thou/mm3 (1.8-7.7); Neutrophils % (Auto) 66 % (37-80); Nucleated Red Blood Cell # 0.00 Thou/mm3 (0.00-0.00); Nucleated Red Blood Cell % 0 /100 WBC (0); Platelet Count 401 Thou/mm3 (140-440); RDW Standard Deviation 46.4 fL (36.4-46.3); Red Blood Count 4.37 Miln/mm3 (4.00-5.20); White Blood Count 7.5 Thou/mm3 (3.6-11.0)
[2025-07-22 08:53] LABS: Glucose Estimated Average 105 mg/dL (80-131); Hemoglobin A1C 5.3 % Hgb (4.8-6.0)
[2025-07-22 09:03] LABS: Folate 14.37 ng/mL (>5.38); Vitamin B12 845 pg/mL (211-911); Vitamin D 25 Hydroxy Total 59.5 ng/mL (7.3-40.2)
[2025-07-22 09:24] LABS: Alanine Aminotransferase 15 U/L (10-49); Albumin, Serum 4.6 gm/dL (3.4-4.8); Albumin/Globulin Ratio 2.0 (1.2-2.2); Alkaline Phosphatase 114 U/L (46-116); Anion Gap 7 (7-16); Aspartate Amino Transferase 28 U/L (0-34); BUN/Creatinine Ratio 6 Ratio (12-20); Bilirubin,Total 0.2 mg/dL (0.3-1.2); Blood Urea Nitrogen < 5 mg/dL (9-23); Calcium 10.7 mg/dL (8.3-10.6); Calcium (Corrected) 10.7 mg/dL (8.5-10.1); Carbon Dioxide 27.4 mMol/L (20.0-31.0); Chloride 106 mMol/L (98-107); Creatinine (Component) 0.8 mg/dL (0.6-1.3); Free T4 (Free Thyroxine) 1.01 ng/dL (0.89-1.76); Globulin 2.3 gm/dL (2.3-3.5); Glucose 97 mg/dL (74-106); Osmolality,Calculated 276 (275-295); Potassium 4.0 mMol/L (3.4-5.1); Sodium 140 mMol/L (136-145); Thyroid Stimulating Hormone 1.70 uIU/mL (0.55-4.78); Total Protein 6.9 gm/dL (5.7-8.2); eGFR > 60 See Note
[2025-07-22 09:38] LABS: Syphilis Nonreactive (Nonreactive)
[2025-07-22 09:39] LABS: Cardiac Risk Estimate 3.8 RATIO (3.7-5.6); Cholesterol 265 mg/dL (132-200); HDL Cholesterol 70 mg/dL (40-60); LDL Cholesterol,Calculated 159 mg/dL (0-130); Triglycerides 180 mg/dL (30-150)
== END | disposition home or self-care (01) ==
LOC: COPL 07:55
PROVIDERS: PCP Family Medicine; Referring Provider Psychiatry & Neurology Neurology; Visit Provider Psychiatry & Neurology Neurology
DX: R41.3 Other amnesia (principal)
CPT/HCPCS: 36415; 80053; 80061; 82306; 82607; 82746; 83036; 84439; 84443; 85025; 86780